=== PATIENT | female | born 1960 | race Caucasian/White ===

== ENCOUNTER → 2018-09-30 | Outpatient (CLI) | payer MEDICARE, OTHER ==
[2018-09-30 18:03] LABS: Peanut IgE <0.10 kU/L; Walnut IgE (Food) <0.10 kU/L
[2018-10-03 14:12] LABS: Latex IgE Class CLASS 0
[2018-10-03 14:13] LABS: Avocado Class CLASS 0; Banana IgE Class CLASS 0; Cow's Milk IgE Class CLASS 0; Egg White IgE <0.35 kU/L (<0.35); Hazelnut IgE <0.35 kU/L (<0.35); Hazelnut IgE Class CLASS 0; Kiwi IgE <0.35 kU/L (<0.35); Kiwi IgE Class CLASS 0; Peanut IgE <0.35 kU/L (<0.35); Potato IgE <0.35 kU/L (<0.35); Potato IgE Class CLASS 0; Soybean IgE <0.35 kU/L (<0.35)
[2018-10-03 14:14] LABS: Alt. alternata IgE Class CLASS 0; Alternaria alternata IgE <0.35 kU/L (<0.35); Asperg. fumagatus IgE <0.35 kU/L (<0.35); Asperg. fumagatus IgE Class CLASS 0; Aureo. pullulans IgE <0.35 kU/L (<0.35); Aureo. pullulans IgE Class CLASS 0; Birch(Com.Silvr) IgE <0.35 kU/L (<0.35); Birch(Com.Silvr) IgE Class CLASS 0; Candida albicans IgE Class CLASS 0; Cat Epith & Dander IgE <0.35 kU/L (<0.35); Cat Epith & Dander IgE Class CLASS 0; Clad herbarum IgE <0.35 kU/L (<0.35); Clad herbarum IgE Class CLASS 0; Cockroach IgE <0.35 kU/L (<0.35); Com. Pigweed IgE <0.35 kU/L (<0.35); Com. Pigweed IgE Class CLASS 0; Cottonwood IgE <0.35 kU/L (<0.35); Dermato. Pteronyssinus Class CLASS 0; Dermato. Pteronyssinus IgE <0.35 kU/L (<0.35); Dermato. farinae IgE <0.35 kU/L (<0.35); Dermato. farinae IgE Class CLASS 0; Dog Dander IgE <0.35 kU/L (<0.35); English Plantain IgE Class CLASS 0; Epicoccum purpurascens Class CLASS 0; Epicoccum purpurascens IgE <0.35 kU/L (<0.35); Johnson Grass IgE Class CLASS 0; Lamb's Quarter IgE <0.35 kU/L (<0.35); Lamb's Quarter IgE Class CLASS 0; Maple (Box Elder) IgE <0.35 kU/L (<0.35); Maple (Box Elder) IgE Class CLASS 0; Mucor racemosus IgE <0.35 kU/L (<0.35); Mucor racemosus IgE Class CLASS 0; Oak IgE <0.35 kU/L (<0.35); Rhizopus nigricans IgE <0.35 kU/L (<0.35); Rhizopus nigricans IgE Class CLASS 0; S.rostrata/Helminth Class CLASS 0; S.rostrata/Helminth IgE <0.35 kU/L (<0.35); Sycamore(Mpl.Lf) IgE <0.35 kU/L (<0.35); Sycamore(Mpl.Lf) IgE Class CLASS 0; Timothy Grass IgE <0.35 kU/L (<0.35); Timothy Grass IgE Class CLASS 0; Walnut Tree IgE <0.35 kU/L (<0.35); Walnut Tree IgE Class CLASS 0; White Ash IgE Class CLASS 0
[2018-10-04 12:02] LABS: Corn IgG 22.6 mcg/mL (< 2.0); Cow's Milk IgG 29.6 mcg/mL (< 2.0); Peanut IgG 3.8 mcg/mL (< 2.0); Soybean IgG 3.4 mcg/mL (< 2.0); Wheat IgG 10.6 mcg/mL (< 2.0)
== END | disposition home or self-care (01) ==
LOC: LABWHC1 11:43
PROVIDERS: ATTEND Otolaryngology
DX: J30.89 Other allergic rhinitis (principal); T78.2XXA Anaphylactic shock, unspecified, initial encounter
CPT/HCPCS: 36415; 86001; 86003

== ENCOUNTER → 2019-02-13 | Outpatient (CLI) | payer MEDICARE, OTHER ==
--- NOTE | 2019-02-13 09:15 | MR ---
EXAMINATION TYPE: MR brain and iac wo/w con DATE OF EXAM: 02/13/2019 COMPARISON: NONE HISTORY: pain in ear, jaw and neck, some loss of taste, left sided hearing loss TECHNIQUE: Multiplanar, multisequence images of the brain and brainstem including internal auditory canals are a ll performed without and with IV contrast, utilizing 9 mL intravenous Gadavist . FINDINGS: Diffusion weighted images demonstrate no evidence of a recent infarct or other diffusion ab normality. There is no worrisome extra-axial fluid collection. There is mild ventricular and sulcal prominence slightly more prominent over the bilateral frontal lobes. Scattered foci of T2 hyperintens ity are seen throughout the white matter bilaterally. Approximately 5-10 small scattered lesions are seen. Lesions are nonspecific in appearance and distribution but most likely on basis of product of c hronic small vessel ischemic change in patient of this age. Midline structures demonstrate normal morphology. The craniocervical junction appears within normal limits. Post contrast images demonstrate no abnormal enhancement. The dural venous sinuses appear pa tent. The visualized sinuses are clear and the globes are intact. No suspicious opacification mastoid air cells is present bilaterally. Vestibulocochlear complexes are symmetric without within normal limits. There is no suspicious enhancing cerebellopontine angle mass identified bilaterally. IMPRESSION: 1. No suspicious abnormalities identified to account for patient's symptoms of left-sided hearing los s and left ear pain. 2. Mild diffuse cerebral atrophy most prominent over bilateral frontal lobes with mild chronic small vessel ischemic change. No suspicious enhancement is present.
== END | disposition home or self-care (01) ==
LOC: RADMRIMAIN 07:08
PROVIDERS: ATTEND Otolaryngology
DX: G31.9 Degenerative disease of nervous system, unspecified (principal); I67.82 Cerebral ischemia; H91.92 Unspecified hearing loss, left ear; H93.3X2 Disorders of left acoustic nerve; R43.0 Anosmia
CPT/HCPCS: 70553; A9585

== ENCOUNTER → 2019-02-21 | Outpatient (CLI) | payer MEDICARE, OTHER ==
--- NOTE | 2019-02-21 09:05 | CT ---
EXAMINATION TYPE: CT soft tissue neck w con DATE OF EXAM: 02/21/2019 COMPARISON: None HISTORY: 59-year-old female loss of smell and taste, dry throat, Lt ear pain, neck pain TECHNIQUE: Contiguous axial scanning of the soft tissues of the neck performed with IV Contrast, mansi ent injected with 100 mL of Isovue 300. Coronal/sagittal reconstructions performed. CT DLP: 517.1 mGycm Automated exposure control for dose reduction was used. FINDINGS: Visualized intracranial structures, orbits and globes, paranasal sinuses, and mastoid air cells appea r clear. Nasopharynx appears clear. Bilateral lingual tonsillar hypertrophy. Oropharynx otherwise clear. Epiglottis and prevertebral soft tissues within normal limits. The glottic and subglottic structures as well as the tracheal column are clear. Post traumatic rib deformities of the anterolateral right upper chest wall. Tiny 4 mm hypodense nodule right lobe of the thyroid gland. Submandibular glands and parotid glands a re satisfactory. Prominent but not enlarged 9 mm right upper cervical lymph node and 1 cm on the left. No cervical lym phadenopathy by CT size criteria. Moderate disc/degenerative change mid to lower cervical spine with reversal of the normal cervical lo rdosis. IMPRESSION: 1. A PROMINENT UPPER CERVICAL LYMPH NODE ON EITHER SIDE MEASURES UP TO 1 CM. NO CERVICAL LYMPHADENOPA THY BY CT SIZE CRITERIA. 2. BILATERAL LINGUAL TONSILLAR HYPERTROPHY. OTHERWISE, NO DISCRETE MUCOSAL SPACE LESION.
== END | disposition home or self-care (01) ==
LOC: RADCTMAIN 06:35
PROVIDERS: ATTEND Otolaryngology
DX: J35.1 Hypertrophy of tonsils (principal); R22.9 Localized swelling, mass and lump, unspecified; Z88.1 Allergy status to other antibiotic agents; Z88.5 Allergy status to narcotic agent
CPT/HCPCS: 70491

== ENCOUNTER → 2019-11-21 | Outpatient (CLI) | payer MEDICARE, OTHER ==
--- NOTE | 2019-11-21 12:51 | FL ---
EXAMINATION TYPE: FL barium swallow w video DATE OF EXAM: 11/21/2019 CLINICAL HISTORY: 59-year-old female R13.10, Dysphagia. Coughing and choking with food. TECHNIQUE: Deglutition study is performed utilizing thin liquid barium, honey and nectar thick liqui d barium, barium thick applesauce, and barium coated cracker. Total images: None. Real-time fluoroscopy support was provided to speech pathology. Fluoroscopy time: 1 minute 39 seconds. COMPARISON: None. FINDINGS: There is anterior spondylosis at C6-C7 resulting in impression onto the posterior wall of the cervica l esophagus without obstruction. The patient points to this level as being symptomatic. Lingual tonsi llar hypertrophy is noted. The oral and pharyngeal phases show satisfactory initiation and propagatio n with all modalities tested. Normal mastication is seen with solid modalities tested. There is no evidence of penetration or aspiration with any modality tested. No significant pharyngeal residue wa s appreciated. IMPRESSION: 1. No penetration or aspiration. 2. Anterior cervical spondylosis at C6-C7 impressing on to the posterior wall of the cervical esophag us. The patient points to this level as being symptomatic. This does not contribute to an obstruction . 3. Lingual tonsillar hypertrophy noted. Please refer to speech therapist notes for further details if necessary.
== END | disposition home or self-care (01) ==
LOC: RADFLMAIN 10:38
PROVIDERS: ATTEND Otolaryngology
DX: J35.1 Hypertrophy of tonsils (principal)
CPT/HCPCS: 74230

== ENCOUNTER → 2019-11-24 | Outpatient (CLI) | payer MEDICARE, OTHER ==
--- NOTE | 2019-11-24 12:41 | FL ---
EXAMINATION: Cervical and Thoracic Esophagram DATE OF EXAM: 11/24/2019 CLINICAL INDICATION: 59-year-old female R1 3.10, dysphagia. Patient with coughing and choking episode s. COMPARISON: Correlation modified barium swallow 11/21/[address] neck 02/21/2019 Total Fluoroscopy Time: 1 minute 53 seconds. Total images: 34 FINDINGS: The swallowing mechanism is normal. Redemonstrated lingual tonsillar hypertrophy. There is also anter ior endplate spondylosis C6/C7 impressing on the posterior wall of the hypopharynx but without obstru ction. The thoracic portion has a normal course and caliber. The mucosa is normal and no persistent filling defect is encountered. There is a small to moderate-sized hiatal hernia. Gastroesophageal reflux could not be elicited with Valsalva or positional maneuvers. There are blunted secondary stripping waves with prolonged pooling of contrast in the esophagus when the patient is prone or supine IMPRESSION: 1. Redemonstrated palatine tonsillar hypertrophy as seen on the modified barium swallow study of 2019. Additional anterior endplate spondylosis at C6-C7 causing mild impingement along the posterior wall of the and upper cervical esophagus is also redemonstrated. No obstruction. 2. Small to moderate size hiatal hernia. Gastroesophageal reflux could not be elicited during the cou rse of the exam. 3. Mild esophageal dysmotility.
== END | disposition home or self-care (01) ==
LOC: RADUSWWP 09:45
PROVIDERS: ATTEND Otolaryngology
DX: K44.9 Diaphragmatic hernia without obstruction or gangrene (principal); K21.9 Gastro-esophageal reflux disease without esophagitis; K22.4 Dyskinesia of esophagus
CPT/HCPCS: 74220

== ENCOUNTER 2020-02-08 09:49 | Day surgery (SDC) | payer MEDICARE, OTHER ==
[2020-02-06 12:16] VITALS: BMI 34.5
[~2020-02-08 09:49] MED LIST: DEXAMETHASONE SOD PHOSPHATE 4 MG/ML 1 ML VIAL IV ONE; FAMOTIDINE 20 MG/2 ML VIAL IV ONE; HYDROmorphone 0.5 MG/0.5 ML SYRINGE IVP PRN; LACTATED RINGERS 1,000 ML IV SCH; LIDOCAINE 1% (10MG/ML) FOR IV START INTRADERMA PRN; ONDANSETRON 4 MG/2 ML VIAL IVP ONE
[2020-02-08] MEDS ORDERED: MIDAZOLAM 2 MG/2 ML VIAL IVP ONE (11:51)
[2020-02-08 11:58] VITALS: RESP 16
[2020-02-08] MEDS ORDERED: fentaNYL (PF) 50 MCG/ML 2 ML AMP ONE (12:16)
[2020-02-08] MEDS ORDERED: MIDAZOLAM 2 MG/2 ML VIAL ONE (12:16)
[2020-02-08] MEDS ORDERED: PROPOFOL 10 MG/ML 20 ML VIAL IV ONE (12:16)
[2020-02-08] MEDS ORDERED: DEXAMETHASONE SOD PHOSPHATE 10 MG/ML 1 ML VIAL ONE (12:16)
[2020-02-08] MEDS ORDERED: LIDOCAINE 1% INJ 10MG/ML (20 ML MDV) ONE (12:16)
[2020-02-08] MEDS ORDERED: SUCCINYLCHOLINE CHLORIDE VIAL 200 MG/10 ML VIAL IV ONE (12:16)
[2020-02-08] MEDS ORDERED: LIDOCAINE 1%-EPI 1:100,000 20 ML VIAL SQ ONE (12:46)
[2020-02-08] MEDS ORDERED: BUPIVACAINE (PF) 0.25% 30 ML VIAL SQ ONE (12:46)
--- NOTE | 2020-02-08 13:19 | P.OP ---
Date of Procedure: 02/08/20 Preoperative Diagnosis: Lingual tonsil hypertrophy Globus pharyngeus\dysphasia Postoperative Diagnosis: Same Procedure(s) Performed: Lingual tonsillectomy Esophagoscopy Anesthesia: ILANA Surgeon: Cesar Fontana Estimated Blood Loss (ml): 5 Pathology: other (Lingual tonsil) Condition: stable Disposition: PACU Indications for Procedure: This patient presented to the office for a globus pharyngeus symptoms along with dysphagia. She feels a narrowing in her throat and a food gets stuck in her throat when she tries to swallow. I did review the results of the barium swallow demonstrating significant lingual tonsillitis along with cervical osteoarthritis. She did undergo esophagoscopy previously and was found have severe lingual tonsil hypertrophy. She also has a hiatal hernia and reflux disease. She wished to proceed forward with a lingual tonsillectomy and repeat esophagoscopy. All risks, benefits, and alternative therapies were discussed. Consent was obtained and all questions were answered. Operative Findings: Patient had significant lingual tonsil hypertrophy. Osteophytic spurs were noted in the posterior pharynx. There is evidence of some mild esophagitis Description of Procedure: This patient was taken to the operative room and placed in the supine position. A general inhalation anesthetic was administered to the patient by mask and subsequently intubated with a cuffed endotracheal tube by the department of anesthesia with a functioning IV line in place. Patient was monitored throughout the entire case by the department of anesthesia. A rigid esophagoscope was placed into the patient's mouth with a tooth guard in place with care to avoid any trauma to the lips teeth gums and tongue. The esophagoscope was placed into the right piriform sinus and the entire length of the esophagus was evaluated from the lower esophageal sphincter to the upper esophageal sphincter. There is evidence of a mild chronic esophagitis but no signs of any specific tumors or masses etc. Scope was removed and then attention was then paid to the mouth and lingual tonsil. With use of a sweetheart retractor we removed parts of the lingual tonsil with direct biopsy forceps. We sent that for pathology. We removed the rest of the lingual tonsils with use of Coblation utilizing a plasma wand for removal. Excellent removal was obtained and the patient tolerated this lingual tonsillectomy well. Follow-up will be in the office in 1 week and the patient is to contact me if any problems should arise.
[2020-02-08 13:22] VITALS: TEMP 99
[2020-02-08] MEDS ORDERED: HYDROcodone/APAP 5-325MG 1 EACH TAB ONE (14:31)
[2020-02-08 14:33] VITALS: BP 126/77; PULSE 64
[2020-02-08] MEDS ORDERED: HYDROcodone/APAP 5-325MG 1 EACH TAB PO ONE (14:33)
== END 2020-02-08 15:30 | disposition home or self-care (01) ==
LOC: OR 09:49
PROVIDERS: ATTEND Otolaryngology
DX: R13.10 Dysphagia, unspecified (principal); J35.1 Hypertrophy of tonsils; D64.9 Anemia, unspecified; J45.909 Unspecified asthma, uncomplicated; F31.9 Bipolar disorder, unspecified; L30.9 Dermatitis, unspecified; K58.9 Irritable bowel syndrome, unspecified; G47.33 Obstructive sleep apnea (adult) (pediatric); E66.9 Obesity, unspecified; Z87.891 Personal history of nicotine dependence; Z68.34 Body mass index [BMI] 34.0-34.9, adult; F20.9 Schizophrenia, unspecified; Z87.09 Personal history of other diseases of the respiratory system; Z98.890 Other specified postprocedural states; Z98.891 History of uterine scar from previous surgery; Z82.49 Family history of ischemic heart disease and other diseases of the circulatory system; Z80.0 Family history of malignant neoplasm of digestive organs; K21.00 Gastro-esophageal reflux disease with esophagitis, without bleeding; Z83.42 Family history of familial hypercholesterolemia; Z83.52 Family history of ear disorders; Z83.518 Family history of other specified eye disorder; Z88.1 Allergy status to other antibiotic agents; Z88.5 Allergy status to narcotic agent; Z88.8 Allergy status to other drugs, medicaments and biological substances; M47.812 Spondylosis without myelopathy or radiculopathy, cervical region; K44.9 Diaphragmatic hernia without obstruction or gangrene
CPT/HCPCS: 42826; 43239; 88305; J2250; J0330; J1100 ×2; J2405; J0690; J2001; J3010; J2704

== ENCOUNTER 2020-11-12 13:33 | Emergency (ER) | payer MEDICARE, OTHER ==
[2020-11-12] MEDS ORDERED: methylPREDNISolone SOD SUCCI 125 MG/2 ML VIAL IV STA (14:56)
[2020-11-12] MEDS ORDERED: MORPHINE SULFATE 2 MG/ML SYRINGE IM ONE (14:56)
[2020-11-12] MEDS ORDERED: methylPREDNISolone SOD SUCCI 125 MG/2 ML VIAL IM ONE (14:56)
--- NOTE | 2020-11-12 16:02 | XR ---
EXAMINATION TYPE: XR femur LT DATE OF EXAM: 11/12/2020 CLINICAL HISTORY: Pain TECHNIQUE: Two views of the left femur are obtained. COMPARISON: None FINDINGS: There is no acute fracture or dislocation seen in the left femur. Severe arthropathy of th e knee joint with hypertrophic spurring. IMPRESSION: There is no acute fracture or dislocation in the left femur.
--- NOTE | 2020-11-12 16:03 | XR ---
EXAMINATION TYPE: XR Hip Complete LT DATE OF EXAM: 11/12/2020 COMPARISON: NONE HISTORY: Pain TECHNIQUE: 2 views submitted FINDINGS: There is no evidence of erosive change or acute fracture. Hypertrophic change of the acetabulum can b e associated with femoral acetabular impingement. Correlate clinically. Mild concentric narrowing of the joint space compatible with mild arthropathy. IMPRESSION: 1. No evidence of acute fracture or dislocation.
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
[2020-11-12 16:54] VITALS: BP 142/73; PULSE 60; RESP 18; TEMP 98
== END 2020-11-12 16:44 | disposition home or self-care (01) ==
LOC: SUPCPDRO 13:33 → EC 13:33
DX: M54.42 Lumbago with sciatica, left side (principal); M54.16 Radiculopathy, lumbar region; M25.552 Pain in left hip; J45.909 Unspecified asthma, uncomplicated; I10 Essential (primary) hypertension; M19.90 Unspecified osteoarthritis, unspecified site; K21.9 Gastro-esophageal reflux disease without esophagitis; Z79.82 Long term (current) use of aspirin; Z79.51 Long term (current) use of inhaled steroids; Z79.899 Other long term (current) drug therapy; Z88.6 Allergy status to analgesic agent; Z87.891 Personal history of nicotine dependence; Z88.8 Allergy status to other drugs, medicaments and biological substances; Z88.1 Allergy status to other antibiotic agents
CPT/HCPCS: 73502; 73552; 99284; 96372; J2930; J2270

== ENCOUNTER 2020-11-24 16:17 | Inpatient (IN) | payer MEDICARE, MEDICAID ==
[2020-11-24] MEDS ORDERED: DIAZEPAM 5 MG/ML 2 ML INJ IM STA (17:26)
--- NOTE | 2020-11-24 17:31 | ED ---
Psych HPI - General Chief Complaint: Psychiatric Symptoms Stated Complaint: psych eval Time Seen by Provider: 11/24/20 16:41 Source: patient Mode of arrival: ambulatory - History of Present Illness Initial Comments: 60-year-old female with history of bipolar, paranoid schizophrenia presenting to the emergency department for psychiatric evaluation. She is present with her sister who is also her advocate. Patient reports she is feeling manic even though she is taking her medications. Patient reports auditory but no visual hallucinations. However, she denies any homicidal suicidal thoughts or ideations. States she also speaks to her counselor on regular basis. She also reports taking anxiolytic medications when necessary but is not feeling more anxious than usual. - Related Data Home Medications Medication Instructions Recorded Confirmed Acetaminophen [Tylenol Extra 500 mg PO TID PRN 02/06/20 02/08/20 Strength] Albuterol Nebulized [Ventolin 2.5 mg INHALATION BID 02/06/20 02/08/20 Nebulized] Albuterol Sulfate [Ventolin HFA] 1 - 2 puff INHALATION Q6H PRN 02/06/20 02/06/20 Aspirin 81 mg PO DAILY 02/06/20 02/06/20 Citalopram Hydrobromide [CeleXA] 40 mg PO HS 02/06/20 02/06/20 Fluticasone Propionate [Flovent 2 puff INHALATION DAILY 02/06/20 02/06/20 Hfa 110 mcg] Loratadine [Claritin] 5 mg PO DAILY 02/06/20 02/06/20 Methocarbamol [Robaxin-750] 750 mg PO TID 02/06/20 02/06/20 Montelukast Sodium [Singulair] 10 mg PO HS 02/06/20 02/06/20 Multivitamins, Thera [Multivitamin 1 tab PO DAILY 02/06/20 02/06/20 (formulary)] Pantoprazole Sodium [Protonix] 40 mg PO HS 02/06/20 02/06/20 Promethazine HCl [Phenergan Syrup] 20 ml PO DAILY PRN 02/06/20 02/08/20 Psyllium Husk (with Sugar) 2 tsp PO DAILY 02/06/20 02/08/20 [Metamucil Powder] amLODIPine [Norvasc] 5 mg PO HS 02/06/20 02/06/20 diazePAM [Valium] 5 mg PO BID 02/06/20 02/06/20 lamoTRIgine [LaMICtal] 100 mg PO HS 02/06/20 02/06/20 traZODone HCL [Desyrel] 100 mg PO HS 02/06/20 02/06/20 valACYclovir [Valtrex] 500 mg PO BID PRN 02/06/20 02/06/20 Previous Rx's Medication Instructions Recorded Amoxicillin 500 mg PO Q8HR #300 ml 02/08/20 HYDROcodone/APAP 5-325MG [[place] 1 - 2 tab PO Q6H PRN 3 Days #24 tab 02/08/20 5-325] predniSONE [Deltasone] 20 mg PO DIRECTED #5 tab 02/08/20 predniSONE 50 mg PO DAILY #5 tab 11/12/20 Allergies Allergy/AdvReac Type Severity Reaction Status Date / Time atenolol Allergy Anaphylaxis Verified 11/24/20 16:36 ibuprofen [From Motrin] Allergy Anaphylaxis Verified 11/24/20 16:36 lisinopril Allergy Abdominal Verified 11/24/20 16:36 Pain meloxicam [From Mobic] Allergy Anaphylaxis Verified 11/24/20 16:36 tetracycline Allergy Rash/Hives Verified 11/24/20 16:36 Review of Systems ROS Statement: Those systems with pertinent positive or pertinent negative responses have been documented in the HPI. ROS Other: All systems not noted in ROS Statement are negative. Past Medical History Past Medical History: Asthma, GERD/Reflux, Hypertension, Osteoarthritis (OA), Sleep Apnea/CPAP/BIPAP Additional Past Medical History / Comment(s): MIGRAINE HEADACHE, TMJ , C PAP , HIATAL HERNIA, History of Any Multi-Drug Resistant Organisms: None Reported Past Surgical History: Adenoidectomy, Appendectomy, Cholecystectomy, Orthopedic Surgery, Tonsillectomy Additional Past Surgical History / Comment(s): BOWEL RESECTION X2 , MYOMECTOMY X3 , BILATERAL CARPAL TUNNEL RELEASE , LEFT ARTHROSCOPIC KNEE X3 Past Anesthesia/Blood Transfusion Reactions: No Reported Reaction Past Psychological History: Anxiety, Bipolar, Depression, Panic Disorder, Schiz ophrenia Smoking Status: Former smoker Past Alcohol Use History: None Reported Past Drug Use History: None Reported General Exam Limitations: no limitations General appearance: alert, in no apparent distress Head exam: Present: atraumatic, normocephalic, normal inspection Eye exam: Present: normal appearance Pupils: Present: normal accommodation ENT exam: Present: normal exam, normal oropharynx, mucous membranes moist Neck exam: Present: normal inspection, full ROM. Absent: tenderness, lymphadenopathy Respiratory exam: Present: normal lung sounds bilaterally. Absent: respiratory distress Cardiovascular Exam: Present: regular rate, normal rhythm, normal heart sounds. Absent: systolic murmur Extremities exam: Present: normal inspection, full ROM Back exam: Present: normal inspection, full ROM Neurological exam: Present: alert, oriented X3 Psychiatric exam: Present: normal affect, normal mood Skin exam: Present: warm, dry, intact, normal color Course Vital Signs 11/24/20 16:37 Temperature 98.2 F Pulse Rate 104 H Respiratory 18 Rate Blood Pressure 174/83 O2 Sat by Pulse 95 Oximetry Medical Decision Making - Medical Decision Making 60-year-old female with history of bipolar, paranoid schizophrenia presenting to the emergency department for psychiatric evaluation. EPS to evaluate a patient and she will be admitted for further psychiatric management. Disposition Clinical Impression: Auditory hallucinations Disposition: ADMITTED IP TO THIS HOSP Condition: Fair Is patient prescribed a controlled substance at d/c from ED?: No Referrals: John Albert MD [Primary Care Provider] - 1-2 days Time of Disposition: 19:14
[2020-11-24] MEDS ORDERED: LORazepam 2 MG/ML INJ IM ONE (19:30)
[2020-11-24] MEDS ORDERED: MAGNESIUM HYDROXIDE 2,400 MG/10 ML CUP PO PRN (20:19)
[2020-11-24] MEDS ORDERED: MAG HYDROX/AL HYDROX/SIMETH 30 ML CUP PO PRN (20:19)
[2020-11-24] MEDS ORDERED: LORazepam 2 MG/ML INJ IM PRN (20:23)
[2020-11-24] MEDS ORDERED: PROMETHAZINE HCL 6.25 MG/5 ML CUP PO PRN (20:24)
[2020-11-24] MEDS ORDERED: ALBUTEROL NEBULIZED 2.5 MG/3 ML INHALATION PRN (20:24)
[2020-11-24] MEDS ORDERED: haloperidoL 5 MG TAB PO PRN (20:29)
[2020-11-24] MEDS ORDERED: HALOPERIDOL LACTATE 5 MG/ML 1 ML VIAL IM PRN (20:29)
[2020-11-24] MEDS ORDERED: ALBUTEROL NEBULIZED 2.5 MG/3 ML INHALATION SCH (21:00)
[2020-11-24] MEDS: PANTOPRAZOLE 40 MG TABLET PO SCH (21:59)
[2020-11-24] MEDS: MONTELUKAST 10 MG TAB PO SCH (21:59)
[2020-11-24] MEDS: CITALOPRAM HYDROBROMIDE 20 MG TAB PO SCH (21:59)
[2020-11-24] MEDS: amLODIPine 5 MG TAB PO SCH (21:59)
[2020-11-24] MEDS: lamoTRIgine 100 MG TAB PO SCH (21:59)
[2020-11-24] MEDS ORDERED: ALBUTEROL INHALER 60 PUFF/8 GM INHALER (MHU) INHALATION PRN (23:35)
[2020-11-25 07:08] LABS: Basophils # (A) 0.1 k/uL (0-0.2); Basophils % (A) 1 %; Eosinophils # (A) 0.1 k/uL (0-0.7); Eosinophils % (A) 2 %; HCT 43.9 % (34.0-46.0); Lymphocytes # (A) 2.3 k/uL (1.0-4.8); Lymphocytes % (A) 28 %; MCH 32.7 pg (25.0-35.0); MCHC 34.1 g/dL (31.0-37.0); MCV 95.9 fL (80.0-100.0); Mean Platelet Volume 7.2; Monocytes # (A) 0.4 k/uL (0-1.0); Monocytes % (A) 5 %; Neutrophils # (A) 4.9 k/uL (1.3-7.7); Neutrophils % (A) 61 %; Platelet Count 241 k/uL (150-450); RBC 4.58 m/uL (3.80-5.40)
[2020-11-25 07:29] LABS: ALT 38 U/L (4-34); AST 45 U/L (14-36); African American GFR (CKD) >90 (>60 ml/min/1.73 sqM); Albumin 4.3 g/dL (3.5-5.0); Alkaline Phosphatase 80 U/L (38-126); Anion Gap 9 mmol/L; Blood Urea Nitrogen 9 mg/dL (7-17); Calcium 9.6 mg/dL (8.4-10.2); Carbon Dioxide 25 mmol/L (22-30); Chloride 103 mmol/L (98-107); Glucose 100 mg/dL (74-99); Non-African American GFR(CKD) >90 (>60 ml/min/1.73 sqM); Sodium 137 mmol/L (137-145)
[2020-11-25] MEDS: PSYLLIUM HUSK 100% 6 GM PACKET PO SCH (08:55)
[2020-11-25] MEDS: MULTIVITAMINS, THERA 1 EACH TAB PO SCH (08:55)
[2020-11-25] MEDS: ALBUTEROL INHALER 60 PUFF/8 GM INHALER (MHU) INHALATION SCH ×2 (08:56→21:03)
[2020-11-25] MEDS: ACETAMINOPHEN TAB 325 MG TAB PO PRN ×2 (08:59→22:14)
[2020-11-25] MEDS ORDERED: LORATADINE 10 MG TAB PO SCH (09:00)
[2020-11-25] MEDS: FLUTICASONE 110 MCG INHALER INHALATION SCH (09:23)
[2020-11-25 11:54] LABS: Chol/HDL Ratio 3.02; Cholesterol 196 mg/dL (0-200)
--- NOTE | 2020-11-25 12:53 | P.HP ---
Psychiatric H&P - . H&P Date: 11/25/20 History & Physical: Allergies Allergy/AdvReac Type Severity Reaction Status Date / Time atenolol Allergy Anaphylaxis Verified 11/24/20 16:36 ibuprofen [From Motrin] Allergy Anaphylaxis Verified 11/24/20 16:36 lisinopril Allergy Abdominal Verified 11/24/20 16:36 Pain meloxicam [From Mobic] Allergy Anaphylaxis Verified 11/24/20 16:36 tetracycline Allergy Rash/Hives Verified 11/24/20 16:36 Vital Signs Temp 97.9 F 11/24/20 21:23 Pulse 75 11/24/20 21:23 Resp 18 11/24/20 21:23 BP 174/83 11/24/20 16:37 Pulse Ox 95 11/24/20 16:37 Intake & Output 11/24/20 11/25/20 11/25/20 18:59 06:59 18:59 Weight 81.647 kg 81.647 kg Laboratory Last Values WBC 8.0 k/uL (3.8-10.6) 11/25/20 06:19 RBC 4.58 m/uL (3.80-5.40) 11/25/20 06:19 Hgb 15.0 gm/dL (11.4-16.0) 11/25/20 06:19 Hct 43.9 % (34.0-46.0) 11/25/20 06:19 MCV 95.9 fL (80.0-100.0) 11/25/20 06:19 MCH 32.7 pg (25.0-35.0) 11/25/20 06:19 MCHC 34.1 g/dL (31.0-37.0) 11/25/20 06:19 RDW 13.0 % (11.5-15.5) 11/25/20 06:19 Plt Count 241 k/uL (150-450) 11/25/20 06:19 MPV 7.2 11/25/20 06:19 Neutrophils % 61 % 11/25/20 06:19 Lymphocytes % 28 % 11/25/20 06:19 Monocytes % 5 % 11/25/20 06:19 Eosinophils % 2 % 11/25/20 06:19 Basophils % 1 % 11/25/20 06:19 Neutrophils # 4.9 k/uL (1.3-7.7) 11/25/20 06:19 Lymphocytes # 2.3 k/uL (1.0-4.8) 11/25/20 06:19 Monocytes # 0.4 k/uL (0-1.0) 11/25/20 06:19 Eosinophils # 0.1 k/uL (0-0.7) 11/25/20 06:19 Basophils # 0.1 k/uL (0-0.2) 11/25/20 06:19 Sodium 137 mmol/L (137-145) 11/25/20 06:19 Potassium 4.0 mmol/L (3.5-5.1) 11/25/20 06:19 Chloride 103 mmol/L (98-107) 11/25/20 06:19 Carbon Dioxide 25 mmol/L (22-30) 11/25/20 06:19 Anion Gap 9 mmol/L 11/25/20 06:19 BUN 9 mg/dL (7-17) 11/25/20 06:19 Creatinine 0.52 mg/dL (0.52-1.04) 11/25/20 06:19 Est GFR (CKD-EPI)AfAm >90 (>60 ml/min/1.73 sqM) 11/25/20 06:19 Est GFR (CKD-EPI)NonAf >90 (>60 ml/min/1.73 sqM) 11/25/20 06:19 Glucose 100 mg/dL (74-99) H 11/25/20 06:19 Calcium 9.6 mg/dL (8.4-10.2) 11/25/20 06:19 Total Bilirubin 1.0 mg/dL (0.2-1.3) 11/25/20 06:19 AST 45 U/L (14-36) H 11/25/20 06:19 ALT 38 U/L (4-34) H 11/25/20 06:19 Alkaline Phosphatase 80 U/L (38-126) 11/25/20 06:19 Total Protein 7.0 g/dL (6.3-8.2) 11/25/20 06:19 Albumin 4.3 g/dL (3.5-5.0) 11/25/20 06:19 TSH 1.190 mIU/L (0.465-4.680) 11/25/20 06:19 Coronavirus (PCR) Not Detected (Not Detectd) 11/24/20 19:24 11/25/20 11:27 IDENTIFYING DATA: Patient is a 60-year-old female with history of bipolar disorder, currently lives with her parents, lives in a house, is unemployed, no kids. HPI: Patient presented to the hospital yesterday for psychiatric evaluation with her sister. Patient was complaining of having manic symptoms and auditory hallucinations and also anxiety in the ER. Patient did admit to taking her medications. EPS note claims that patient was fairly demanding making sexually graphic remarks and giving information of her dating life. She also was making racist comments and was sexually preoccupied. She was also endorsing paranoia and claiming that the mafia was after her. She had a flight of ideas and was grandiose according to the EPS report. Patient was seen today with a female superintendent communications. She claims that she has been diagnosed with "bipolar and schizophrenia" and states that she was feeling manic. She describes being diagnosed a long time ago and having been on many different psychiatric medications. She was fairly tangential rambles and had loose associations. She also was displaying a flight of ideas. She spoke about using "drugs in the city" and claims that her mother picked her up and "moved me to the thumb". She spoke about "[place]" and also talked about the mafia and [place] cartels that are after her. She also spoke about security cameras in her apartment. She states that she is hearing voices and claims that it is a "third democrat narrative". She states that she first sleep has been poor. She claimed that her mood is "better". She states that she is taking her medications. She did endorse some paranoia about the drug cartel being after her. She did have racing thoughts and was disorganized at times. Patient denies any current suicidal or homicidal ideations intent or plan. At this time patient denies any visual hallucinations. Patient admits to using no recreational drugs or cigarettes. PAST PSYCHIATRIC HISTORY: Patient states that she has a hx of schizophrenia and bipolar disorder. She states that she has been on several different antipsychotics and medications in the past. Currently on Lamictal and Celexa. She claims that she has been hospitalized several times in the past and her last psychiatric hospitalization was on the mental health unit 15 years ago. She claims that she sees a psychiatrist through telehealth. She states that she also has a therapist that she meets with weekly. [Patient denies any history of suicide attempts in the past.] Past Medical History: Asthma, GERD/Reflux, Hypertension, Osteoarthritis (OA), Sleep Apnea/CPAP/BIPAP Additional Past Medical History / Comment(s): MIGRAINE HEADACHE, TMJ , C PAP , HIATAL HERNIA, ALLERGIES: as per EMR CHEMICAL DEPENDENCY HISTORY: as per HPI FAMILY PSYCHIATRIC/SUBSTANCE USE HISTORY: She claims that her father currently has dementia and also has a history of bipolar disorder. SOCIAL HISTORY: Patient was born and raised in [facility]. She states that currently she lives in "the [facility]". She states that she did some college. 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 She has no kids and is single. She currently lives with her parents in a house. She states that she does have a DUI charge 17 years ago. MENTAL STATUS EXAM: General Appearance: Patient appears to be overweight, stated age is alert, difficult to redirect. Patient appears to have [poor] hygiene and grooming. Behavior: Patient is seated without any agitated behavior. Disorganized at times Speech: Patient's speech is pressured and disorganized. Tangential. Mood/Affect: Patient reports their mood is "better", affect is congruent and constricted. Suicidality/Homicidality: Patient denies having any homicidal ideation intent or plan. [Denies any suicidal ideations intent or plan] Perceptions: Patient denies any visual hallucinations and states that she does hear auditory hallucinations of a "third democrat narrative". Though content/process: Patient rambles, is tangential. Loose associations. Flight of ideas. Racing thoughts. Memory and concentration: AOX3, grossly intact for the purposes of this session. Can spell "WORLD" backwards Judgment and insight: [poor] STRENGTHS/WEAKNESSES: strength is that patient is [resilient]. Weakness is that patient [has poor judgment and is impulsive] INTELLECT: [average] IMPRESSIONS: Schizoaffective disorder, bipolar type PLAN: -Patient is admitted under [voluntary] status to MHU for stabilization of psychiatric symptoms and safety. Patient has signed [adult voluntary form and] [medication consent] and is placed in patient's chart. -Medications : Will start patient on Seroquel 50 mg daily at bedtime for mood stabilization/psychosis. Continue with Lamictal 100 mg daily at bedtime for mood stabilization. Celexa 40 mg daily at bedtime for mood/anxiety. -Ativan [and Haldol] PRN for agitation/aggression -Patient was informed of the risks, benefits and side effects of the medication and patient verbally consented to taking the medications. Patient signed med consent form and was placed in chart. -Internal Medicine consult to perform medical evaluation and physical. -NRT - not needed as patient does not smoke -SW on board for discharge planning. Encourage patient to participate in groups to work on coping skills. 11/25/20 12:43 11/25/20 12:52
[2020-11-25 15:27] LABS: Urine Alcohol Negative (Negative); Urine Barbiturate Negative (Negative); Urine Cocaine Negative (Negative); Urine Methadone Negative (Negative); Urine Opiates Negative (Negative); Urine Phencyclidine Negative (Negative)
--- NOTE | 2020-11-25 17:22 | P.MDCNMH ---
History of Present Illness H&P Date: 11/25/20 Chief Complaint: Medical management Patient is a 60-year-old female with a known history of TMJ with frequent lidocaine injections at in [facility], hypertension, obstructive sleep apnea on CPAP at home, IBS, GERD and migraine headaches, bipolar disorder and paranoid schizophrenia presents to ER with complaints of manic ideation and psychiatric evaluation. Patient presents with her sister who is her advocate. Patient says that he has been manic recently and has been taking her medications regularly. Also having auditory hallucinations. She has been walking to her counselor more frequently. Patient states that she has been stressful recently and has been taking care of her father and hospital. She also states that her mother developed chest pain recently. Denied any complaints of fever or chills. No cough or sputum production. No nausea vomiting or abdominal pain or diarrhea. On admission blood pressure 174/83 pulse 104 this patient 18 and pulse ox 90% on room air. Laboratory data showed WBC 8.0 hemoglobin 15.0 and platelets 241 Sodium 137 potassium 4.0 chloride 103 BUN 9 and creatinine 0.5 to, AST 45 ALT 35 triglycerides 180 alk phos 80 UDS is positive for benzodiazepines. Chronic increase have not directed. TSH within normal limits 1.190 Review of Systems Constitutional: Patient denies any fever or chills . No generalized weakness or weight loss. Abdomen: Patient denied nausea vomiting and diarrhea and abdominal pain. Cardiovascular: Patient denies any chest pain or short of breath no pa lpitations. Respiratory: patient denied any cough is from production. No shortness of breath Neurologic: Patient denied any numbness or tingling headache. Musculoskeletal: Patient denies any complaints of joint swelling or deformity. Skin: Negative Psychiatric: As per HPI Endocrine: No heat or cold intolerance. No recent weight gain. Genitourinary: No dysuria or hematuria. All other 14 point ROS negative except the above Past Medical History Past Medical History: Asthma, GERD/Reflux, Hypertension, Osteoarthritis (OA), Sleep Apnea/CPAP/BIPAP Additional Past Medical History / Comment(s): MIGRAINE HEADACHE, TMJ , C PAP , HIATAL HERNIA, History of Any Multi-Drug Resistant Organisms: None Reported Past Surgical History: Adenoidectomy, Appendectomy, Cholecystectomy, Orthopedic Surgery, Tonsillectomy Additional Past Surgical History / Comment(s): BOWEL RESECTION X2 , MYOMECTOMY X3 , BILATERAL CARPAL TUNNEL RELEASE , LEFT ARTHROSCOPIC KNEE X3 Past Anesthesia/Blood Transfusion Reactions: No Reported Reaction Smoking Status: Former smoker Medications and Allergies Home Medications Medication Instructions Recorded Confirmed Type Acetaminophen [Tylenol Extra 500 mg PO TID PRN 02/06/20 11/24/20 History Strength] Albuterol Nebulized [Ventolin 2.5 mg INHALATION BID 02/06/20 11/24/20 History Nebulized] Albuterol Sulfate [Ventolin HFA] 1 - 2 puff INHALATION Q6H PRN 02/06/20 11/24/20 History Aspirin 81 mg PO DAILY 02/06/20 11/24/20 History Citalopram Hydrobromide [CeleXA] 40 mg PO HS 02/06/20 11/24/20 History Fluticasone Propionate [Flovent 2 puff INHALATION DAILY 02/06/20 11/24/20 History Hfa 110 mcg] Loratadine [Claritin] 5 mg PO DAILY 02/06/20 11/24/20 History Methocarbamol [Robaxin-750] 750 mg PO TID 02/06/20 11/24/20 History Montelukast Sodium [Singulair] 10 mg PO HS 02/06/20 11/24/20 History Multivitamins, Thera [Multivitamin 1 tab PO DAILY 02/06/20 11/24/20 History (formulary)] Pantoprazole Sodium [Protonix] 40 mg PO HS 02/06/20 11/24/20 History Promethazine HCl [Phenergan Syrup] 20 ml PO DAILY PRN 02/06/20 11/24/20 History Psyllium Husk (with Sugar) 2 tsp PO DAILY 02/06/20 11/24/20 History [Metamucil Powder] amLODIPine [Norvasc] 5 mg PO HS 02/06/20 11/24/20 History diazePAM [Valium] 5 mg PO BID 02/06/20 11/24/20 History lamoTRIgine [LaMICtal] 100 mg PO HS 02/06/20 11/24/20 History traZODone HCL [Desyrel] 100 mg PO HS 02/06/20 11/24/20 History valACYclovir [Valtrex] 500 mg PO BID PRN 02/06/20 11/24/20 History Amoxicillin 500 mg PO Q8HR #300 ml 02/08/20 11/24/20 Rx HYDROcodone/APAP 5-325MG [[place] 1 - 2 tab PO Q6H PRN 3 Days #24 tab 02/08/20 11/24/20 Rx 5-325] predniSONE [Deltasone] 20 mg PO DIRECTED #5 tab 02/08/20 11/24/20 Rx predniSONE 50 mg PO DAILY #5 tab 11/12/20 11/24/20 Rx Allergies Allergy/AdvReac Type Severity Reaction Status Date / Time atenolol Allergy Anaphylaxis Verified 11/24/20 16:36 ibuprofen [From Motrin] Allergy Anaphylaxis Verified 11/24/20 16:36 lisinopril Allergy Abdominal Verified 11/24/20 16:36 Pain meloxicam [From Mobic] Allergy Anaphylaxis Verified 11/24/20 16:36 tetracycline Allergy Rash/Hives Verified 11/24/20 16:36 Physical Exam Vitals: Vital Signs Temp Pulse Resp 11/24/20 21:23 97.9 F 75 18 PHYSICAL EXAMINATION: Patient is lying in the bed comfortably, no acute distress, awake alert and oriented.. HEENT: Normocephalic. Neck is supple. Pupils reactive. Nostrils clear. Oral cavity is moist. Neck reveals no JVD, carotid bruits, or thyromegaly. CHEST EXAMINATION: Trachea is central. Symmetrical expansion. Lung nuñez clear to auscultation and percussion. CARDIAC: Normal S1, S2 with no gallops. No murmurs ABDOMEN: Soft. Bowel sounds normal. No organomegaly. No abdominal bruits. Extremities: reveal no edema. No clubbing or cyanosis Neurologically awake, alert, oriented x3 with well-coordinated movements. No focal deficits noted Skin: No rash or skin lesions. Psychiatric: Coperative. Nonsuicidal anxious, paranoid. Musculoskeletal: No joint swelling or deformity. Normal range of motion. Cranial Nerve Examination - Cranial Nerves Cranial Nerve I- Olfactory: Intact Cranial Nerve II- Optic: Intact Cranial Nerve III- Oculomotor: Intact Cranial Nerve IV- Trochlear: Intact Cranial Nerve V- Trigeminal: Intact Cranial Nerve - Abducens: Intact Cranial Nerve VII- Facial: Intact Cranial Nerve VIII- Auditory: Intact Cranial Nerve IX- Glossopharyngeal: Intact Cranial Nerve X- Vagus: Intact Cranial Nerve XI- Accessory: Intact Cranial Nerve XII- Hypoglossal: Intact Results CBC & Chem 7: 11/25/20 06:19 11/25/20 06:19 Labs: Abnormal Lab Results - Last 24 Hours (Table) 11/24/20 11/25/20 Range/Units Unknown 06:19 Glucose 100 H (74-99) mg/dL AST 45 H (14-36) U/L ALT 38 H (4-34) U/L Triglycerides 180.0 H (0.0-149.0) mg/dL HDL Cholesterol 65.0 H (40.0-60.0) mg/dL U Benzodiazepines Scrn Positive A (Negative) ng/mL Assessment and Plan Assessment: Schizoaffective disorder with paranoid ideation Auditory hallucinations Mild transaminitis Asthma Previous history of smoking Hypertension. Uncontrolled Obstructive sleep apnea on CPAP at home Osteoarthritis Migraine headaches TMJ on frequented lidocaine injections at [facility] Anxiety/depression/bipolar/panic disorder and schizophrenia DVT prophylaxis with anticoagulation plan: Patient will be started back on current home blood pressure medications, Norvasc 5 mg at bedtime. Continue with current psychiatric management and plan. Patient will be started back on breathing treatments and CPAP as needed in the night. Continue with home medications and will follow up closely. Further recommendations based on the clinical course. Thank you for your consult.
[2020-11-25] MEDS: CITALOPRAM HYDROBROMIDE 20 MG TAB PO SCH (20:57)
[2020-11-25] MEDS: lamoTRIgine 100 MG TAB PO SCH (20:57)
[2020-11-25] MEDS: amLODIPine 5 MG TAB PO SCH (20:57)
[2020-11-25] MEDS: ASPIRIN 81 MG PO SCH (20:57)
[2020-11-25] MEDS: PANTOPRAZOLE 40 MG TABLET PO SCH (20:58)
[2020-11-25] MEDS: MONTELUKAST 10 MG TAB PO SCH (20:58)
[2020-11-25] MEDS: QUEtiapine 50 MG TAB PO SCH (20:58)
[2020-11-25] MEDS: LORazepam 1 MG TAB PO PRN (21:35)
[2020-11-26] MEDS: ACETAMINOPHEN TAB 325 MG TAB PO PRN ×4 (05:07→19:41)
[2020-11-26 07:50] LABS: ALT 36 U/L (4-34); AST 38 U/L (14-36); African American GFR (CKD) >90 (>60 ml/min/1.73 sqM); Albumin 4.2 g/dL (3.5-5.0); Alkaline Phosphatase 69 U/L (38-126); Anion Gap 10 mmol/L; Blood Urea Nitrogen 11 mg/dL (7-17); Calcium 9.7 mg/dL (8.4-10.2); Carbon Dioxide 23 mmol/L (22-30); Chloride 105 mmol/L (98-107); Glucose 107 mg/dL (74-99); Non-African American GFR(CKD) >90 (>60 ml/min/1.73 sqM); Sodium 138 mmol/L (137-145); Total Bilirubin 0.6 mg/dL (0.2-1.3); Total Protein 7.1 g/dL (6.3-8.2)
[2020-11-26] MEDS: FLUTICASONE 110 MCG INHALER INHALATION SCH (08:15)
[2020-11-26] MEDS: MULTIVITAMINS, THERA 1 EACH TAB PO SCH (08:16)
[2020-11-26] MEDS: CETIRIZINE 10 MG TABLET PO SCH (08:16)
[2020-11-26] MEDS: ALBUTEROL INHALER 60 PUFF/8 GM INHALER (MHU) INHALATION SCH ×2 (08:17→21:22)
[2020-11-26] MEDS: PSYLLIUM HUSK 100% 6 GM PACKET PO SCH ×2 (08:20→09:57)
--- NOTE | 2020-11-26 10:27 | P.PN ---
Progress Note - Text Progress Note Date: 11/26/20 Interval History: Patient was seen wandering the hallways and was directable and agreeable to jennifer caldwell with telegraphic typewriter operator in the office. Patient had just taken her morning medications. She appears to be more directable and calmer during conversation. She is also less tangential and showing improvement in her flight of ideas. She states that she slept fairly initially at nighttime with her CPAP and her sitter at her side however states that she woke up in the middle of the night and required an Ati van to go back to bed. He states that today she is feeling mildly better in terms of her mood and anxiety. She was less focused on her delusions and spoke more about her medications and also her follow-up. She was concerned about being discharged too early from the hospital. She asked about her discharge planning. She states that she has been trying to go to groups and participate. She claims have a fair appetite. Her medications were discussed and different options and she claims that she wants to remain on Seroquel and telegraphic typewriter operator informed her of the risk of potential weight gain however decreased risk of potential tardive dyskinesia or other neurological signs as patient was agreeable to this and verbally understood. At this time patient denies any suicidal or homical ideations, intent or plan. Patient denies any visual hallucinations and denies any paranoia or delusions. She claims that her auditory hallucinations have been improving mildly. Patient denies any side effects from the medications and has been compliant with meds. Mental Status Exam: General Appearance: Patient appears to be overweight, stated age is alert, more directable. Patient appears to have improving mildly hygiene and grooming Behavior: Patient is seated without any agitated behavior. Calmer Speech: Patient's speech is more orgnaized today. less tangential. Mood/Affect: Patient reports their mood is "ok", affect is congruent and constricted. Suicidality/Homicidality: Patient denies having any homicidal ideation intent or plan. Denies any suicidal ideations intent or plan Perceptions: Patient denies any visual hallucinations and states that her auditory hallucinations are improving mildly Though content/process: Patient rambles, is tangential. Loose associations. Flight of ideas. Racing thoughts. Memory and concentration: AOX3, grossly intact for the purposes of this session. Judgment and insight: poor, improving mildly Assessment Schizoaffective disorder, bipolar type Plan: -Patient continues to meet criteria for inpatient psychiatric admission for symptom stabilization and safety. Patient has signed adult voluntary form and medication consent and was placed in patient's chart. -Medications: Seroquel 50 mg daily at bedtime for mood stabilization/psychosis. Continue with Lamictal 100 mg daily at bedtime for mood stabilization. Celexa 40 mg daily at bedtime for mood/anxiety. added melatonin 5 mg qhs insomnia. immodium prn for diarrhea. -When necessary Ativan and Haldol for agitation/aggression. -NRT -not needed as patient does not smoke -SW on board for discharge planning. Encouraged the patient to participate in milieu. likely discharge 04-11
[2020-11-26] MEDS: LOPERAMIDE 2 MG CAP PO PRN (10:55)
[2020-11-26] MEDS: PANTOPRAZOLE 40 MG TABLET PO SCH (15:06)
[2020-11-26] MEDS ORDERED: MELATONIN 5 MG TABLET PO SCH (21:00)
[2020-11-26] MEDS: CITALOPRAM HYDROBROMIDE 20 MG TAB PO SCH (21:22)
[2020-11-26] MEDS: MONTELUKAST 10 MG TAB PO SCH (21:22)
[2020-11-26] MEDS: lamoTRIgine 100 MG TAB PO SCH (21:23)
[2020-11-26] MEDS: amLODIPine 5 MG TAB PO SCH (21:23)
[2020-11-26] MEDS: ASPIRIN 81 MG PO SCH (21:23)
[2020-11-26] MEDS: QUEtiapine 50 MG TAB PO SCH (21:23)
[2020-11-26] MEDS: LORazepam 1 MG TAB PO PRN (21:25)
[2020-11-27] MEDS: ACETAMINOPHEN TAB 325 MG TAB PO PRN ×2 (06:27→13:27)
[2020-11-27] MEDS: FLUTICASONE 110 MCG INHALER INHALATION SCH (08:20)
[2020-11-27] MEDS: MULTIVITAMINS, THERA 1 EACH TAB PO SCH (08:20)
[2020-11-27] MEDS: PANTOPRAZOLE 40 MG TABLET PO SCH (08:20)
[2020-11-27] MEDS: CETIRIZINE 10 MG TABLET PO SCH ×3 (08:20→15:03)
[2020-11-27] MEDS: ALBUTEROL INHALER 60 PUFF/8 GM INHALER (MHU) INHALATION SCH ×2 (08:20→21:37)
[2020-11-27] MEDS: PSYLLIUM HUSK 100% 6 GM PACKET PO SCH (08:21)
--- NOTE | 2020-11-27 09:49 | P.PN ---
Progress Note - Text Progress Note Date: 11/27/20 Interval History: Patient was seen wandering the hallways and was directable and agreeable to sp javi with sba underwriter in the office. Patient appears to be more directable and calmer during conversation. She claims that she did not have a good night last night. She states that she beleives that her medication doses could be "too high". She also claimed that she was walking up and down the hallways last night. She is also less tangential and showing improvement in her flight of ideas today. He states that today she is feeling mildly better in terms of her mood and anxiety. She was less focused on her delusions since she came in. She states that she has been trying to go to groups and participate. She claims have a fair appetite. At this time patient denies any suicidal or homical ideations, intent or plan. Patient denies any visual hallucinations and denies any paranoia or delusions. She claims that her auditory hallucinations have been improving mildly once again. Mental Status Exam: General Appearance: Patient appears to be overweight, stated age is alert, more directable. Patient appears to have improving mildly hygiene and grooming Behavior: Patient is seated without any agitated behavior. Calmer Speech: Patient's speech is more orgnaized today. less tangential today Mood/Affect: Patient reports their mood is "a bit better", affect is congruent and constricted. Suicidality/Homicidality: Patient denies having any homicidal ideation intent or plan. Denies any suicidal ideations intent or plan Perceptions: Patient denies any visual hallucinations and states that her auditory hallucinations are improving mildly Though content/process: Patient rambles, is tangential. more organized. Rambles at times. Memory and concentration: AOX3, grossly intact for the purposes of this session. Judgment and insight: poor, improving mildly Assessment Schizoaffective disorder, bipolar type Plan: -Patient continues to meet criteria for inpatient psychiatric admission for symptom stabilization and safety. Patient has signed adult voluntary form and medication consent and was placed in patient's chart. -Medications: Seroquel 50 mg daily at bedtime for mood stabilization/psychosis. Continue with Lamictal 100 mg daily at bedtime for mood stabilization. switched Celexa 40 mg to daily dosing for mood/anxiety. continue with melatonin 5 mg qhs insomnia. immodium prn for diarrhea. Decreased ativan prn dosing -When necessary Ativan and Haldol for agitation/aggression. -NRT -not needed as patient does not smoke -SW on board for discharge planning. Encouraged the patient to participate in milieu. likely discharge 1-2 days.
[2020-11-27] MEDS: CITALOPRAM HYDROBROMIDE 20 MG TAB PO SCH (11:04)
[2020-11-27] MEDS: LORazepam 0.5 MG TAB PO PRN (13:27)
[2020-11-27] MEDS: lamoTRIgine 100 MG TAB PO SCH (21:39)
[2020-11-27] MEDS: QUEtiapine 50 MG TAB PO SCH (21:39)
[2020-11-27] MEDS: amLODIPine 5 MG TAB PO SCH (21:39)
[2020-11-27] MEDS: MELATONIN 5 MG TABLET PO SCH (21:39)
[2020-11-27] MEDS: ASPIRIN 81 MG PO SCH (21:39)
[2020-11-27] MEDS: MONTELUKAST 10 MG TAB PO SCH (21:39)
[2020-11-28] MEDS: CETIRIZINE 10 MG TABLET PO SCH (06:16)
[2020-11-28] MEDS: ACETAMINOPHEN TAB 325 MG TAB PO PRN ×2 (06:17→16:41)
[2020-11-28] MEDS: ALBUTEROL INHALER 60 PUFF/8 GM INHALER (MHU) INHALATION SCH ×2 (08:40→20:51)
[2020-11-28] MEDS: PSYLLIUM HUSK 100% 6 GM PACKET PO SCH (08:41)
[2020-11-28] MEDS: FLUTICASONE 110 MCG INHALER INHALATION SCH (08:41)
[2020-11-28] MEDS: PANTOPRAZOLE 40 MG TABLET PO SCH (08:41)
[2020-11-28] MEDS: MULTIVITAMINS, THERA 1 EACH TAB PO SCH (08:41)
[2020-11-28] MEDS: CITALOPRAM HYDROBROMIDE 20 MG TAB PO SCH (08:42)
[2020-11-28] MEDS ORDERED: PSYLLIUM HUSK 100% 6 GM PACKET PO ONE (09:00)
--- NOTE | 2020-11-28 09:05 | P.PN ---
Progress Note - Text Progress Note Date: 11/28/20 Interval History: Patient was seen wandering the hallways and was directable and agreeable to sp javi with report writer in the office. Patient appears to be more directable and calmer during conversation. She continues to be somatically preoccupied at times and talks about her clearing her throat and also her IBS and bowel movements. She requested to have some of her when necessary medications changed. She claims that she feels better on medications and feels like her thoughts are "calmer". She wants to remain on the same dose of the Seroquel despite having a 5-6 hours sleep last night. She states that she had some anxiety at nighttime. She wants to remain on 50 mg of Seroquel for tonight before trying to increase it. She is also less tangential and showing improvement in her flight of ideas today. He states that today she is feeling mildly better in terms of her mood and anxiety. She states that she has been trying to go to groups and participate however states that she is not getting much out of them. She claims have a fair appetite. At this time patient denies any suicidal or homical ideations, intent or plan. Patient denies any visual hallucinations and denies any paranoia or delusions. She claims that her auditory hallucinations have been improving mildly once again. Mental Status Exam: General Appearance: Patient appears to be overweight, stated age is alert, more directable. Patient appears to have improving mildly hygiene and grooming Behavior: Patient is seated without any agitated behavior. Calmer Speech: Patient's speech is more orgnaized today. less tangential today Mood/Affect: Patient reports their mood is "better", affect is congruent and constricted. Suicidality/Homicidality: Patient denies having any homicidal ideation intent or plan. Denies any suicidal ideations intent or plan Perceptions: Patient denies any visual hallucinations and denies any auditory hallucinations. Though content/process: Patient rambles, is tangential at times. more organized. Rambles at times. Memory and concentration: AOX3, grossly intact for the purposes of this session. Judgment and insight: improving mildly Assessment Schizoaffective disorder, bipolar type Plan: -Patient continues to meet criteria for inpatient psychiatric admission for symptom stabilization and safety. Patient has signed adult voluntary form and medication consent and was placed in patient's chart. -Medications: Seroquel 50 mg daily at bedtime for mood stabilization/psychosis. Continue with Lamictal 100 mg daily at bedtime for mood stabilization. Celexa 40 mg to daily dosing for mood/anxiety. continue with melatonin 5 mg qhs insomnia. -When necessary Ativan and Haldol for agitation/aggression. -NRT -not needed as patient does not smoke -SW on board for discharge planning. Encouraged the patient to participate in milieu. likely discharge back home tomorrow.
[2020-11-28] MEDS: LOPERAMIDE 2 MG CAP PO PRN ×2 (09:20→17:03)
[2020-11-28] MEDS: AZELASTINE 137MCG/SPRAY NASAL PRN ×2 (09:50→21:00)
[2020-11-28] MEDS: valACYclovir 500 MG TAB PO PRN (09:50)
[2020-11-28] MEDS: LORazepam 0.5 MG TAB PO PRN ×2 (11:20→18:33)
[2020-11-28] MEDS: ASPIRIN 81 MG PO SCH (20:52)
[2020-11-28] MEDS: QUEtiapine 50 MG TAB PO SCH (20:52)
[2020-11-28] MEDS: MELATONIN 5 MG TABLET PO SCH (20:52)
[2020-11-28] MEDS: amLODIPine 5 MG TAB PO SCH (20:52)
[2020-11-28] MEDS: MONTELUKAST 10 MG TAB PO SCH (20:52)
[2020-11-28] MEDS: lamoTRIgine 100 MG TAB PO SCH (20:52)
[2020-11-29 07:19] VITALS: BP 133/81; PULSE 81; RESP 14; TEMP 96.7
[2020-11-29] MEDS: MULTIVITAMINS, THERA 1 EACH TAB PO SCH (08:27)
[2020-11-29] MEDS: CITALOPRAM HYDROBROMIDE 20 MG TAB PO SCH (08:27)
[2020-11-29] MEDS: PANTOPRAZOLE 40 MG TABLET PO SCH (08:27)
[2020-11-29] MEDS: AZELASTINE 137MCG/SPRAY NASAL PRN (08:28)
[2020-11-29] MEDS: CETIRIZINE 10 MG TABLET PO SCH (08:29)
[2020-11-29] MEDS: FLUTICASONE 110 MCG INHALER INHALATION SCH (08:30)
[2020-11-29] MEDS: ACETAMINOPHEN TAB 325 MG TAB PO PRN ×2 (08:31→11:56)
[2020-11-29] MEDS: ALBUTEROL INHALER 60 PUFF/8 GM INHALER (MHU) INHALATION SCH (08:36)
[2020-11-29] MEDS ORDERED: PSYLLIUM HUSK 100% 6 GM PACKET PO SCH (09:00)
--- NOTE | 2020-11-29 09:55 | P.DS ---
Providers Date of admission: 11/24/20 20:15 Expected date of discharge: 11/29/20 Attending physician: Ronnie Diaz MD Consults: 11/24/20 20:19 Consult Physician Routine Consulting Provider: Ajit Briscoe Consult Reason/Comments: medical management Do you want consulting provider notified?: Already Contacted Primary care physician: John Albert - Discharge Diagnosis(es) (1) Schizoaffective disorder, bipolar type Current Visit: Yes Status: Acute Priority: High Hospital Course: Admission HPI: Admission note was completed by real estate underwriter " Patient is a 60-year-old female with history of bipolar disorder, currently lives with her parents, lives in a house, is unemployed, no kids. Patient presented to the hospital yesterday for psychiatric evaluation with her sister. Patient was complaining of having manic symptoms and auditory hallucinations and also anxiety in the ER. Patient did admit to taking her medications. EPS note claims that patient was fairly demanding making sexually graphic remarks and giving information of her dating life. She also was making racist comments and was sexually preoccupied. She was also endorsing paranoia and claiming that the mafia was after her. She had a flight of ideas and was grandiose according to the EPS report. Patient was seen today with a female floor inspector. She claims that she has been diagnosed with "bipolar and schizophrenia" and states that she was feeling manic. She describes being diagnosed a long time ago and having been on many different psychiatric medications. She was fairly tangential rambles and had loose associations. She also was displaying a flight of ideas. She spoke about using "drugs in the city" and claims that her mother picked her up and "moved me to the thumb". She spoke about "[place]" and also talked about the mafia and [place] cartels that are after her. She also spoke about security cameras in her apartment. She states that she is hearing voices and claims that it is a "third green party narrative". She states that she first sleep has been poor. She claimed that her mood is "better". She states that she is taking her medications. She did endorse some paranoia about the drug cartel being after her. She did have racing thoughts and was disorganized at times. Patient denies any current suicidal or homicidal ideations intent or plan. At this time patient denies any visual hallucinations. Patient admits to using no recreational drugs or cigarettes." Hospital course: Upon admission to the unit patient was initially bizarre and psychotic. Patient was however directable and agreeable to commence treatment and signed adult voluntary form. Patient got along well with other patients on the unit and followed unit protocol. Patient was compliant with the medications and denied any side effects throughout hospital course. Patient was started on Seroquel an d titrated up to a dose of 50 mg daily at bedtime for mood stabilization/psychosis. Patient was also restarted back on her Lamictal 100 mg daily at bedtime for mood stabilization and also restarted back on her Celexa 40 mg daily for mood/anxiety. Patient was also started on melatonin 10 mg daily at bedtime for sleep. Patient spoke of her stressors and engaged in therapy both group and individual. Patient was also seen by medical team for history and physical exam. Throughout the course of the hospitalization patient gradually improved with regards to mood stabilization, psychosis, sleep and became more future oriented with improved insight and judgment. On the day of discharge patient denied any suicidal or homicidal ideations intent or plan denied any auditory or visual hallucinations. Patient endorsed wanting to live for her future and her family. The patient denied any access to guns or weapons. Patient denied any paranoia and did not endorse any delusions. Patient does not have a significant history of substance abuse however was counseled on abstaining from all substances including alcohol and marijuana. Patient was also counseled on the medications and need for regular compliance and was encouraged to follow-up with their outpatient appointment for mental health and also for primary care. Prior to discharge a family meeting will be arranged by social work professor to answer any questions and ensure safety upon discharge. Mental status exam: General Appearance: Patient appears to be short in stature, stated age is alert, pleasant, and cooperative. Patient is in no acute distress and has improved hygiene and grooming Behavior: Patient is calmly seated without any agitated behavior. Speech: Patient's speech is fluent and nonpressured. Mood/Affect: Patient reports their mood is "better", affect is congruent and euthymic. Suicidality/Homicidality: Patient denies having any suicidal or homicidal ideation intent or plan. Perceptions: Patient denies any auditory or visual hallucinations. Though content/process: There is no evidence of any delusional thought content and thought process is linear and goal-directed. Memory and concentration: AOX3, grossly intact for the purposes of this session. Can spell "WORLD" backwards correctly. Judgment and insight: improved with guarded prognosis Impression: Schizoaffective disorder, bipolar type Plan: -Continue with discharge today as patient has improved and stabilized psychiatrically and is not currently an imminent threat to herself and/or others. -Continue medications: Seroquel 50 mg daily at bedtime for mood stabilization/psychosis, Lamictal 100 mg daily at bedtime for mood stabilization, Celexa 40 mg daily for mood/anxiety, melatonin 10 mg daily at bedtime for insomnia. -Patient was counseled on the need for medication compliance and appropriate follow-up at mental health and also primary care for medical issues. Patient verbalized understanding and agreed. -Social work to arrange for and conduct family meeting to ensure safety upon discharge and answer any questions/concerns. Social work also to arrange for patients follow up appointments with [facility] for psychiatric care along with follow up with primary care provider. -Patient counseled on abstaining from recreational drugs and marijuana and alcohol. Was informed/educated on the adverse effects on their physical and mental health. Patient verbally agreed and understood. -Patient was instructed to return to the hospital or seek immediate medical care if their psychiatric or medical symptoms do worsen or reoccur. Allergies Allergy/AdvReac Type Severity Reaction Status Date / Time atenolol Allergy Anaphylaxis Verified 11/24/20 16:36 ibuprofen [From Motrin] Allergy Anaphylaxis Verified 11/24/20 16:36 lisinopril Allergy Abdominal Verified 11/24/20 16:36 Pain meloxicam [From Mobic] Allergy Anaphylaxis Verified 11/24/20 16:36 tetracycline Allergy Rash/Hives Verified 11/24/20 16:36 Laboratory Results WBC 8.0 k/uL (3.8-10.6) 11/25/20 06:19 RBC 4.58 m/uL (3.80-5.40) 11/25/20 06:19 Hgb 15.0 gm/dL (11.4-16.0) 11/25/20 06:19 Hct 43.9 % (34.0-46.0) 11/25/20 06:19 MCV 95.9 fL (80.0-100.0) 11/25/20 06:19 MCH 32.7 pg (25.0-35.0) 11/25/20 06:19 MCHC 34.1 g/dL (31.0-37.0) 11/25/20 06:19 RDW 13.0 % (11.5-15.5) 11/25/20 06:19 Plt Count 241 k/uL (150-450) 11/25/20 06:19 MPV 7.2 11/25/20 06:19 Neutrophils % 61 % 11/25/20 06:19 Lymphocytes % 28 % 11/25/20 06:19 Monocytes % 5 % 11/25/20 06:19 Eosinophils % 2 % 11/25/20 06:19 Basophils % 1 % 11/25/20 06:19 Neutrophils # 4.9 k/uL (1.3-7.7) 11/25/20 06:19 Lymphocytes # 2.3 k/uL (1.0-4.8) 11/25/20 06:19 Monocytes # 0.4 k/uL (0-1.0) 11/25/20 06:19 Eosinophils # 0.1 k/uL (0-0.7) 11/25/20 06:19 Basophils # 0.1 k/uL (0-0.2) 11/25/20 06:19 Sodium 138 mmol/L (137-145) 11/26/20 06:54 Potassium 4.0 mmol/L (3.5-5.1) 11/26/20 06:54 Chloride 105 mmol/L (98-107) 11/26/20 06:54 Carbon Dioxide 23 mmol/L (22-30) 11/26/20 06:54 Anion Gap 10 mmol/L 11/26/20 06:54 BUN 11 mg/dL (7-17) 11/26/20 06:54 Creatinine 0.51 mg/dL (0.52-1.04) L 11/26/20 06:54 Est GFR (CKD-EPI)AfAm >90 (>60 ml/min/1.73 sqM) 11/26/20 06:54 Est GFR (CKD-EPI)NonAf >90 (>60 ml/min/1.73 sqM) 11/26/20 06:54 Glucose 107 mg/dL (74-99) H 11/26/20 06:[address] Glu mg/dL 97 11/25/20 06:19 Hemoglobin A1c 5.0 % (4.0-6.0) 11/25/20 06:19 Calcium 9.7 mg/dL (8.4-10.2) 11/26/20 06:54 Total Bilirubin 0.6 mg/dL (0.2-1.3) 11/26/20 06:54 AST 38 U/L (14-36) H 11/26/20 06:54 ALT 36 U/L (4-34) H 11/26/20 06:54 Alkaline Phosphatase 69 U/L (38-126) 11/26/20 06:54 Total Protein 7.1 g/dL (6.3-8.2) 11/26/20 06:54 Albumin 4.2 g/dL (3.5-5.0) 11/26/20 06:54 Triglycerides 180.0 mg/dL (0.0-149.0) H 11/25/20 06:19 Cholesterol 196 mg/dL (0-200) 11/25/20 06:19 LDL Cholesterol, Calc 95.0 mg/dL (0.0-131.0) 11/25/20 06:19 VLDL Cholesterol, Calc 36.00 mg/dL (5.00-40.00) 11/25/20 06:19 HDL Cholesterol 65.0 mg/dL (40.0-60.0) H 11/25/20 06:19 Cholesterol/HDL Ratio 3.02 11/25/20 06:19 TSH 1.190 mIU/L (0.465-4.680) 11/25/20 06:19 Urine Opiates Screen Negative ng/mL (Negative) 11/24/20 Unknown Urine Methadone Screen Negative ng/mL (Negative) 11/24/20 Unknown Ur Propoxyphene Screen Negative ng/mL (Negative) 11/24/20 Unknown Urine Barbiturates Negative ng/mL (Negative) 11/24/20 Unknown Ur Phencyclidine Scrn Negative ng/mL (Negative) 11/24/20 Unknown Ur Amphetamine Screen Negative ng/mL (Negative) 11/24/20 Unknown U Benzodiazepines Scrn Positive ng/mL (Negative) A 11/24/20 Unknown Urine Cocaine Screen Negative ng/mL (Negative) 11/24/20 Unknown U Cannabinoids Screen Negative ng/mL (Negative) 11/24/20 Unknown Urine Alcohol Negative mg/dL (Negative) 11/24/20 Unknown Coronavirus (PCR) Not Detected (Not Detectd) 11/24/20 19:24 Vital Signs Temp 96.7 F L 11/29/20 07:18 Pulse 81 11/29/20 07:18 Resp 14 11/29/20 07:18 BP 133/81 11/29/20 07:18 Pulse Ox 96 11/28/20 06:18 Patient Condition at Discharge: Stable Plan - Discharge Summary Discharge Rx Participant: No New Discharge Prescriptions: New Loperamide [Imodium] 2 mg PO QID PRN cap PRN Reason: Diarrhea QUEtiapine [SEROquel] 50 mg PO HS 30 Days tab Azelastine HCl [Astepro] 2 spray NASAL BID PRN #1 PRN Reason: Allergy Symptoms Citalopram Hydrobromide [CeleXA] 40 mg PO DAILY 30 Days tab Melatonin 10 mg PO HS 30 Days tablet Continue Aspirin 81 mg PO DAILY Fluticasone Propionate [Flovent Hfa 110 mcg] 2 puff INHALATION DAILY Albuterol Sulfate [Ventolin HFA] 1 - 2 puff INHALATION Q6H PRN PRN Reason: Shortness Of Breath Or Wheezing Multivitamins, Thera [Multivitamin (formulary)] 1 tab PO DAILY valACYclovir [Valtrex] 500 mg PO BID PRN PRN Reason: FLARE UP amLODIPine [Norvasc] 5 mg PO HS Pantoprazole Sodium [Protonix] 40 mg PO HS Loratadine [Claritin] 5 mg PO DAILY Acetaminophen [Tylenol Extra Strength] 500 mg PO TID PRN PRN Reason: Pain Psyllium Husk (with Sugar) [Metamucil Powder] 2 tsp PO DAILY Albuterol Nebulized [Ventolin Nebulized] 2.5 mg INHALATION BID Montelukast Sodium [Singulair] 10 mg PO HS 30 Days tab lamoTRIgine [LaMICtal] 100 mg PO HS 30 Days tab Discontinued diazePAM [Valium] 5 mg PO BID Methocarbamol [Robaxin-750] 750 mg PO TID traZODone HCL [Desyrel] 100 mg PO HS Citalopram Hydrobromide [CeleXA] 40 mg PO HS Promethazine HCl [Phenergan Syrup] 20 ml PO DAILY PRN PRN Reason: Cough Amoxicillin 500 mg PO Q8HR #300 ml predniSONE [Deltasone] 20 mg PO DIRECTED #5 tab HYDROcodone/APAP 5-325MG [H[place]ckley 5-325] 1 - 2 tab PO Q6H PRN 3 Days #24 tab PRN Reason: Pain predniSONE 50 mg PO DAILY #5 tab Discharge Medication List Acetaminophen [Tylenol Extra Strength] 500 mg PO TID PRN 02/06/20 [History] Albuterol Nebulized [Ventolin Nebulized] 2.5 mg INHALATION BID 02/06/20 [History] Albuterol Sulfate [Ventolin HFA] 1 - 2 puff INHALATION Q6H PRN 02/06/20 [History] Aspirin 81 mg PO DAILY 02/06/20 [History] Fluticasone Propionate [Flovent Hfa 110 mcg] 2 puff INHALATION DAILY 02/06/20 [History] Loratadine [Claritin] 5 mg PO DAILY 02/06/20 [History] Multivitamins, Thera [Multivitamin (formulary)] 1 tab PO DAILY 02/06/20 [History] Pantoprazole Sodium [Protonix] 40 mg PO HS 02/06/20 [History] Psyllium Husk (with Sugar) [Metamucil Powder] 2 tsp PO DAILY 02/06/20 [History] amLODIPine [Norvasc] 5 mg PO HS 02/06/20 [History] valACYclovir [Valtrex] 500 mg PO BID PRN 02/06/20 [History] Azelastine HCl [Astepro] 2 spray NASAL BID PRN #1 11/29/20 [Rx] Citalopram Hydrobromide [CeleXA] 40 mg PO DAILY 30 Days tab 11/29/20 [Rx] Loperamide [Imodium] 2 mg PO QID PRN cap 11/29/20 [Rx] Melatonin 10 mg PO HS 30 Days tablet 11/29/20 [Rx] Montelukast Sodium [Singulair] 10 mg PO HS 30 Days tab 11/29/20 [Rx] QUEtiapine [SEROquel] 50 mg PO HS 30 Days tab 11/29/20 [Rx] lamoTRIgine [LaMICtal] 100 mg PO HS 30 Days tab 11/29/20 [Rx] Follow up Appointment(s)/Referral(s): [facility] [Outside] - 12/06/20 8:00 am (Intake at [facility] office with Judie) John Albert MD [Primary Care Provider] - 1-2 days Activity/Diet/Wound Care/Special Instructions: Activity and diet as tolerated. Avoid the use of street drugs and alcohol. Take all medications as prescribed. When you are in need of refills on your med ications please contact your medical provider and/or outpatient psychiatrist to have this done. Please go to scheduled outpatient appointment for aftercare treatment. If symptoms return or become worse, call the crisis line at and/or go to the nearest emergency room for evaluation. Discharge Disposition: HOME SELF-CARE
[2020-11-29] MEDS: valACYclovir 500 MG TAB PO PRN (11:57)
== END 2020-11-29 14:12 | disposition home or self-care (01) | DRG 885 ==
LOC: EC 16:17 → 3MHU 20:15
PROVIDERS: ADMIT Psychiatry & Neurology Psychiatry; ATTEND Psychiatry & Neurology Psychiatry
DX: F25.0 Schizoaffective disorder, bipolar type (principal); F41.0 Panic disorder [episodic paroxysmal anxiety]; Z20.822 Contact with and (suspected) exposure to COVID-19; J45.909 Unspecified asthma, uncomplicated; K21.9 Gastro-esophageal reflux disease without esophagitis; G47.33 Obstructive sleep apnea (adult) (pediatric); I10 Essential (primary) hypertension; K44.9 Diaphragmatic hernia without obstruction or gangrene; K58.9 Irritable bowel syndrome, unspecified; G47.00 Insomnia, unspecified; M19.90 Unspecified osteoarthritis, unspecified site; M26.609 Unspecified temporomandibular joint disorder, unspecified side; Z79.82 Long term (current) use of aspirin; Z79.51 Long term (current) use of inhaled steroids; Z79.52 Long term (current) use of systemic steroids; Z79.899 Other long term (current) drug therapy; Z90.89 Acquired absence of other organs; Z86.69 Personal history of other diseases of the nervous system and sense organs; Z87.19 Personal history of other diseases of the digestive system; Z90.49 Acquired absence of other specified parts of digestive tract; Z87.891 Personal history of nicotine dependence; Z87.39 Personal history of other diseases of the musculoskeletal system and connective tissue; Z98.890 Other specified postprocedural states; Z88.6 Allergy status to analgesic agent; Z88.1 Allergy status to other antibiotic agents; Z88.8 Allergy status to other drugs, medicaments and biological substances
CPT/HCPCS: 80053; 80061; 80306; 82075; 83036; 84443; 85025; 87635; 96372; 99285

== ENCOUNTER 2022-07-29 12:22 | Emergency (ER) | payer MEDICARE, OTHER ==
[2022-07-29 12:29] VITALS: TEMP 98.2
[2022-07-29 13:00] VITALS: RESP 18
[2022-07-29] MEDS ORDERED: hydrALAZINE HCL 20 MG/ML 1 ML VIAL IVP STA (13:01)
--- NOTE | 2022-07-29 13:14 | ED ---
General Adult HPI - General Chief complaint: Headache Stated complaint: HIGH BP Time Seen by Provider: 07/29/22 12:30 Source: patient, RN notes reviewed, old records reviewed Mode of arrival: ambulatory Limitations: no limitations - History of Present Illness Initial comments: This is a 62-year-old female has past medical history significant for migraine headaches as well as high blood pressure. Patient states about 6 weeks ago she started getting headaches mostly on the left side of her head. Patient states that it was intermittent at first but for the last couple of weeks is been every single day. Patient states she sometimes gets some blurred vision out of that eye but she currently does not have any blurred vision. Patient states she's f ollowing up with Dr. Fontana for TMJ and in the office her blood pressure was approximately 220/120. She came to the emergency department per patient denies any numbness or weakness currently patient denies any blurred vision currently. Patient does still complain of a headache. Patient states is not as bad as it has been. Patient denies chest pain difficulty breathing shortness of breath. Patient denies any abdominal pain patient denies nausea vomiting diarrhea. Patient denies any recent fever chills or cough - Related Data Home Medications Medication Instructions Recorded Confirmed Acetaminophen [Tylenol Extra 500 mg PO TID PRN 02/06/20 11/24/20 Strength] Albuterol Nebulized [Ventolin 2.5 mg INHALATION BID 02/06/20 11/24/20 Nebulized] Albuterol Sulfate [Ventolin HFA] 1 - 2 puff INHALATION Q6H PRN 02/06/20 11/24/20 Aspirin 81 mg PO DAILY 02/06/20 11/24/20 Fluticasone Propionate [Flovent 2 puff INHALATION DAILY 02/06/20 11/24/20 Hfa 110 mcg] Loratadine [Claritin] 5 mg PO DAILY 02/06/20 11/24/20 Multivitamins, Thera [Multivitamin 1 tab PO DAILY 02/06/20 11/24/20 (formulary)] Pantoprazole Sodium [Protonix] 40 mg PO HS 02/06/20 11/24/20 Psyllium Husk (with Sugar) 2 tsp PO DAILY 02/06/20 11/24/20 [Metamucil Powder] amLODIPine [Norvasc] 5 mg PO HS 02/06/20 11/24/20 valACYclovir HCL [Valtrex] 500 mg PO BID PRN 02/06/20 11/24/20 Previous Rx's Medication Instructions Recorded Azelastine HCl [Astepro] 2 spray NASAL BID PRN #1 11/29/20 Citalopram Hydrobromide [CeleXA] 40 mg PO DAILY 30 Days tab 11/29/20 Loperamide [Imodium] 2 mg PO QID PRN cap 11/29/20 Melatonin 10 mg PO HS 30 Days tablet 11/29/20 Montelukast Sodium [Singulair] 10 mg PO HS 30 Days tab 11/29/20 QUEtiapine [SEROquel] 50 mg PO HS 30 Days tab 11/29/20 lamoTRIgine [LaMICtal] 100 mg PO HS 30 Days tab 11/29/20 Allergies Allergy/AdvReac Type Severity Reaction Status Date / Time aripiprazole [From Abilify] Allergy Unknown Verified 07/29/22 12:30 atenolol Allergy Anaphylaxis Verified 07/29/22 12:29 ibuprofen [From Motrin] Allergy Anaphylaxis Verified 07/29/22 12:29 lamotrigine [From Lamictal] Allergy Unknown Verified 07/29/22 12:30 lisinopril Allergy Abdominal Verified 07/29/22 12:29 Pain meloxicam [From Mobic] Allergy Anaphylaxis Verified 07/29/22 12:29 Penicillins Allergy Unknown Verified 07/29/22 12:30 quetiapine [From Seroquel] Allergy Unknown Verified 07/29/22 12:30 tetracycline Allergy Rash/Hives Verified 07/29/22 12:29 Review of Systems ROS Statement: Those systems with pertinent positive or pertinent negative responses have been documented in the HPI. ROS Other: All systems not noted in ROS Statement are negative. Past Medical History Past Medical History: Asthma, GERD/Reflux, Hypertension, Osteoarthritis (OA), Sleep Apnea/CPAP/BIPAP Additional Past Medical History / Comment(s): MIGRAINE HEADACHE, TMJ , C PAP , HIATAL HERNIA, History of Any Multi-Drug Resistant Organisms: None Reported Past Surgical History: Adenoidectomy, Appendectomy, Cholecystectomy, Orthopedic Surgery, Tonsillectomy Additional Past Surgical History / Comment(s): BOWEL RESECTION X2 , MYOMECTOMY X3 , BILATERAL CARPAL TUNNEL RELEASE , LEFT ARTHROSCOPIC KNEE X3 Past Anesthesia/Blood Transfusion Reactions: No Reported Reaction Past Psychological History: Anxiety, Bipolar, Depression, Panic Disorder, Schizophrenia Smoking Status: Former smoker Past Alcohol Use History: Occasional Past Drug Use History: None Reported General Exam - General Exam Comments Initial Comments: GENERAL: Patient is well-developed and well-nourished. Patient is nontoxic and well- hydrated and is in mild distress. ENT: Neck is soft and supple. No significant lymphadenopathy is noted. Oropharynx is clear. Moist mucous membranes. Neck has full range of motion without eliciting any pain. EYES: The sclera were anicteric and conjunctiva were pink and moist. Extraocular movements were intact and pupils were equal round and reactive to light. Eyelids were unremarkable. PULMONARY: Unlabored respirations. Good breath sounds bilaterally. No audible rales rhonchi or wheezing was noted. CARDIOVASCULAR: There is a regular rate and rhythm without any murmurs gallops or rubs. ABDOMEN: Soft and nontender with normal bowel sounds. SKIN: Skin is clear with no lesions or rashes and otherwise unremarkable. NEUROLOGIC: Patient is alert and oriented x3. Cranial nerves II through XII are grossly intact. Motor and sensory are also intact. Normal speech, volume and content. Symmetrical smile. MUSCULOSKELETAL: Normal extremities with adequate strength and full range of motion. No lower extremity swelling or edema. No calf tenderness. LYMPHATICS: No significant lymphadenopathy is noted PSYCHIATRIC: Normal psychiatric evaluation. Limitations: no limitations Course Vital Signs 07/29/22 07/29/22 07/29/22 12:25 12:58 14:54 Temperature 98.2 F Pulse Rate 66 61 57 L Respiratory 16 18 18 Rate Blood Pressure 155/90 149/85 177/81 O2 Sat by Pulse 98 100 97 Oximetry Medical Decision Making - Medical Decision Making EKG was interpreted by myself that shows a sinus rhythm at 64 bpm MS interval 297 QRS is 94 QT interval 340 QTC is 440. Patient's EKG shows no ST segment elevation or depression. Was pt. sent in by a medical professional or institution (, [facility], [employer], urgent care, hospital, or senior living...) When possible be specific @ -Patient's ENT center and to the emergency department Did you speak to anyone other than the patient for history (EMS, parent, family, police, friend...)? What history was obtained from this source @ -No Did you review nursing and triage notes (agree or disagree)? Why? @ -I reviewed and agree with nursing and triage notes Were old charts reviewed (outside hosp., previous admission, EMS record, old EKG, old radiological studies, urgent care reports/EKG's, senior living records)? Report findings @ -I reviewed prior charts and lab work on this patient Differential Diagnosis (chest pain, altered mental status, abdominal pain women, abdominal pain men, vaginal bleeding, weakness, fever, dyspnea, syncope, headache, dizziness, GI bleed, back pain, seizure, CVA, palpatations, mental health, musculoskeletal)? @ -Differential Headache: Migraine, tension, cluster, carbon monoxide, central venous thrombosis, pension karma temporal arteritis, acute closure glaucoma, intercranial hemorrhage, mastoiditis, sinusitis, head injury, this is not meant to be an all-inclusive list. EKG interpreted by me (3pts min.). @ -As above X-rays interpreted by me (1pt min.). @ -Chest x-ray was interpreted by myself I see no acute abnormality CT interpreted by me (1pt min.). @ -CT of the brain was interpreted by myself I see no acute abnormality U/S interpreted by me (1pt. min.). @ -None done What testing was considered but not performed or refused? (CT, X-rays, U/S, labs)? Why? @ -None What meds were considered but not given or refused? Why? @ -None Did you discuss the management of the patient with other professionals (professionals i.e. , PA, [employer] SE[employer], lab, RT, psych nurse, social media project manager, quality improvement coordinator (rn), teacher, labor relations officer, community case manager)? Give summary @ -No Was smoking cessation discussed for >3mins.? @ -No Was critical care preformed (if so, how long)? @ -No Were there social determinants of health that impacted care today? How? (Homelessness, low income, unemployed, alcoholism, drug addiction, transportation, low edu. Level, literacy, decrease access to med. care, senior care, rehab)? @ -No Was there de-escalation of care discussed even if they declined (Discuss DNR or withdrawal of care, Hospice)? DNR status @ -No What co-morbidities impacted this encounter? (DM, HTN, Smoking, COPD, CAD, Ca ncer, CVA, ARF, Chemo, Hep., AIDS, mental health diagnosis, sleep apnea, morbid obesity)? @ -None Was patient admitted / discharged? Hospital course, mention meds given and route, prescriptions, significant lab abnormalities, going to OR and other pertinent info. @ -Patient had a CT which is normal lab work was essentially normal as was the chest x-ray. I went back in the room to reevaluate the patient she continued to have a headache but no neurologic deficits I told her I give her some medications and try to control the headache she refused and stated she wanted to go home and take her regular occasions and follow-up as an outpatient I indicated to her we could give her something before she left but she need a ride home and she indicated to me that she did not want to call her mother because right now they are not getting along. Patient states she'll leave with the headache and she is okay with this and she has had a headache for 6 weeks Undiagnosed new problem with uncertain prognosis? @ -No Drug Therapy requiring intensive monitoring for toxicity (Heparin, Nitro, Insulin, Cardizem)? @ -No Were any procedures done? @ -No Diagnosis/symptom? @ -Cephalgia Acute, or Chronic, or Acute on Chronic? @ -Acute Uncomplicated (without systemic symptoms) or Complicated (systemic symptoms)? @ -Complicated Side effects of treatment? @ -No Exacerbation, Progression, or Severe Exacerbation? @ -No Poses a threat to life or bodily function? How? (Chest pain, [place], HI, pneumonia, PE, COPD, DKA, ARF, appy, cholecystitis, CVA, Diverticulitis, Homicidal, Suicidal, threat to staff... and all critical care pts) @ -No - Lab Data Result diagrams: 07/29/22 13:32 07/29/22 13:32 Lab Results 07/29/22 07/29/22 07/29/22 Range/Units 13:32 13:32 13:32 WBC 10.9 H (3.8-10.6) k/uL RBC 4.24 (3.80-5.40) m/uL Hgb 13.1 (11.4-16.0) gm/dL Hct 39.5 (34.0-46.0) % MCV 93.0 (80.0-100.0) fL MCH 30.8 (25.0-35.0) pg MCHC 33.1 (31.0-37.0) g/dL RDW 12.0 (11.5-15.5) % Plt Count 274 (150-450) k/uL MPV 8.2 Neutrophils % 80 % Lymphocytes % 14 % Monocytes % 5 % Eosinophils % 1 % Basophils % 0 % Neutrophils # 8.7 H (1.3-7.7) k/uL Lymphocytes # 1.5 (1.0-4.8) k/uL Monocytes # 0.5 (0-1.0) k/uL Eosinophils # 0.1 (0-0.7) k/uL Basophils # 0.0 (0-0.2) k/uL PT 10.4 (9.0-12.0) sec INR 1.0 (<1.2) APTT 24.1 (22.0-30.0) sec Sodium 137 (137-145) mmol/L Potassium 3.9 (3.5-5.1) mmol/L Chloride 104 (98-107) mmol/L Carbon Dioxide 24 (22-30) mmol/L Anion Gap 9 mmol/L BUN 12 (7-17) mg/dL Creatinine 0.48 L (0.52-1.04) mg/dL Est GFR (CKD-EPI)AfAm >90 (>60 ml/min/1.73 sqM) Est GFR (CKD-EPI)NonAf >90 (>60 ml/min/1.73 sqM) Glucose 93 (74-99) mg/dL Calcium 9.1 (8.4-10.2) mg/dL Magnesium 2.1 (1.6-2.3) mg/dL Total Bilirubin 0.7 (0.2-1.3) mg/dL AST 38 H (14-36) U/L ALT 43 H (4-34) U/L Alkaline Phosphatase 64 (38-126) U/L Troponin I (0.000-0.034) ng/mL Total Protein 7.0 (6.3-8.2) g/dL Albumin 4.3 (3.5-5.0) g/dL 07/29/22 Range/Units 13:32 WBC (3.8-10.6) k/uL RBC (3.80-5.40) m/uL Hgb (11.4-16.0) gm/dL Hct (34.0-46.0) % MCV (80.0-100.0) fL MCH (25.0-35.0) pg MCHC (31.0-37.0) g/dL RDW (11.5-15.5) % Plt Count (150-450) k/uL MPV Neutrophils % % Lymphocytes % % Monocytes % % Eosinophils % % Basophils % % Neutrophils # (1.3-7.7) k/uL Lymphocytes # (1.0-4.8) k/uL Monocytes # (0-1.0) k/uL Eosinophils # (0-0.7) k/uL Basophils # (0-0.2) k/uL PT (9.0-12.0) sec INR (<1.2) APTT (22.0-30.0) sec Sodium (137-145) mmol/L Potassium (3.5-5.1) mmol/L Chloride (98-107) mmol/L Carbon Dioxide (22-30) mmol/L Anion Gap mmol/L BUN (7-17) mg/dL Creatinine (0.52-1.04) mg/dL Est GFR (CKD-EPI)AfAm (>60 ml/min/1.73 sqM) Est GFR (CKD-EPI)NonAf (>60 ml/min/1.73 sqM) Glucose (74-99) mg/dL Calcium (8.4-10.2) mg/dL Magnesium (1.6-2.3) mg/dL Total Bilirubin (0.2-1.3) mg/dL AST (14-36) U/L ALT (4-34) U/L Alkaline Phosphatase (38-126) U/L Troponin I <0.012 (0.000-0.034) ng/mL Total Protein (6.3-8.2) g/dL Albumin (3.5-5.0) g/dL Disposition Clinical Impression: Cephalgia Disposition: HOME SELF-CARE Condition: Good Instructions (If sedation given, give patient instructions): Acute Headache (ED) Additional Instructions: Patient should return if symptoms worsen or she has new symptoms. Is patient prescribed a controlled substance at d/c from ED?: No Referrals: John Albert MD [Primary Care Provider] - 1-2 days Time of Disposition: 16:01
--- NOTE | 2022-07-29 13:56 | XR ---
EXAMINATION TYPE: XR chest 2V DATE OF EXAM: 07/29/2022 1:52 PM COMPARISON: None TECHNIQUE: XR chest 2V Frontal and lateral views of the chest. CLINICAL INDICATION:Female, 62 years old with history of Chest Pain; FINDINGS: Lungs/Pleura: There is no evidence of pleural effusion, focal consolidation, or pneumothorax. Pulmonary vascularity: Unremarkable. Heart/mediastinum: Cardiomediastinal silhouette is unremarkable. Musculoskeletal: No acute osseous pathology. Remote appearing right seventh and eighth rib fractures. Mild degenerative changes of the thoracic spine. Other: Cholecystectomy clips in the right upper quadrant. IMPRESSION: No acute cardiopulmonary disease/process.
--- NOTE | 2022-07-29 14:08 | CT ---
EXAMINATION TYPE: CT brain wo con DATE OF EXAM: 07/29/2022 COMPARISON: None INDICATION: Headache DLP: 1129.8 mGycm, Automated exposure control for dose reduction was used. CONTRAST: None CT of the brain is performed utilizing 3 mm thick sections through the posterior fossa and 3 mm thick sections through the remaining calvarium. Study is performed within 24 hours of arrival to the hosp ital. No abnormal hyperdensity is present to suggest an acute intracranial hemorrhage. No mass lesion is evident. No acute infarcts are evident. Ventricles and sulci are appropriate for the patient age. Paranasal sinuses and mastoid air cells within the [id number] are clear. Septal deviation is evident. IMPRESSIONS: 1. No acute intracranial process. Follow-up MRI can be performed as clinically indicated.
[2022-07-29 15:24] LABS: Basophils % (A) 0 %; Eosinophils # (A) 0.1 k/uL (0-0.7); Eosinophils % (A) 1 %; HCT 39.5 % (34.0-46.0); HGB 13.1 gm/dL (11.4-16.0); Lymphocytes # (A) 1.5 k/uL (1.0-4.8); Lymphocytes % (A) 14 %; MCH 30.8 pg (25.0-35.0); MCHC 33.1 g/dL (31.0-37.0); Mean Platelet Volume 8.2; Monocytes # (A) 0.5 k/uL (0-1.0); Monocytes % (A) 5 %; Neutrophils # (A) 8.7 k/uL (1.3-7.7); Neutrophils % (A) 80 %; Platelet Count 274 k/uL (150-450); RBC 4.24 m/uL (3.80-5.40); WBC 10.9 k/uL (3.8-10.6)
[2022-07-29 15:25] LABS: ALT 43 U/L (4-34); African American GFR (CKD) >90 (>60 ml/min/1.73 sqM); Albumin 4.3 g/dL (3.5-5.0); Anion Gap 9 mmol/L; Blood Urea Nitrogen 12 mg/dL (7-17); Calcium 9.1 mg/dL (8.4-10.2); Carbon Dioxide 24 mmol/L (22-30); Chloride 104 mmol/L (98-107); Glucose 93 mg/dL (74-99); Non-African American GFR(CKD) >90 (>60 ml/min/1.73 sqM); Partial Thromboplastin Time 24.1 sec (22.0-30.0); Prothrombin Time 10.4 sec (9.0-12.0); Sodium 137 mmol/L (137-145); Total Bilirubin 0.7 mg/dL (0.2-1.3)
[2022-07-29 15:30] LABS: AST 38 U/L (14-36); Alkaline Phosphatase 64 U/L (38-126); Magnesium 2.1 mg/dL (1.6-2.3); Potassium 3.9 mmol/L (3.5-5.1)
[2022-07-29] MEDS ORDERED: DEXAMETHASONE SOD PHOSPHATE 10 MG/ML 1 ML VIAL IVP STA (15:50)
[2022-07-29] MEDS ORDERED: ACET/COD 300 MG/30 MG STARTER PACK 6 TAB BTL PO STA (16:02)
[2022-07-29 16:59] VITALS: BP 134/67; PULSE 63
== END 2022-07-29 17:12 | disposition home or self-care (01) ==
LOC: EC 12:22
DX: R51.9 Headache, unspecified (principal); I10 Essential (primary) hypertension; J45.909 Unspecified asthma, uncomplicated; K21.9 Gastro-esophageal reflux disease without esophagitis; Z79.51 Long term (current) use of inhaled steroids; Z79.82 Long term (current) use of aspirin; Z79.899 Other long term (current) drug therapy; Z87.891 Personal history of nicotine dependence; Z88.0 Allergy status to penicillin; Z88.1 Allergy status to other antibiotic agents; Z88.6 Allergy status to analgesic agent; Z88.8 Allergy status to other drugs, medicaments and biological substances; Z90.49 Acquired absence of other specified parts of digestive tract
CPT/HCPCS: 36415; 93005; 80053; 83735; 84484; 85025; 85610; 85730; 71046; 70450; 99285; 96374; 96375; J0360; J1100

== ENCOUNTER → 2022-07-29 | Outpatient (CLI) | payer MEDICARE, OTHER ==
[2022-07-30 14:40] LABS: Lettuce IgE Class CLASS 0; Pork IgE Class CLASS 0
[2022-07-30 14:41] LABS: Apple IgE Class CLASS 0; Beef IgE <0.10 kU/L (<0.10); Beef IgE Class CLASS 0; Potato IgE <0.10 kU/L (<0.10); Potato IgE Class CLASS 0; Yeast Bakers/Brew IgE <0.10 kU/L (<0.10); Yeast Bakers/Brew IgE Class CLASS 0
[2022-07-30 14:42] LABS: Celery IgE <0.10 kU/L (<0.10); Celery IgE Class CLASS 0; Chicken IgE Class CLASS 0; Egg Yolk IgE Class CLASS 0; Gluten IgE Class CLASS 0; Oat IgE Class CLASS 0; Onion IgE <0.10 kU/L (<0.10); Onion IgE Class CLASS 0
[2022-07-30 14:43] LABS: Almond IgE <0.10 kU/L (<0.10); Almond IgE Class CLASS 0; Banana IgE Class CLASS 0; Brazil Nut IgE <0.10 kU/L (<0.10); Brazil Nut IgE Class CLASS 0; Cashew IgE <0.10 kU/L (<0.10); Cashew IgE Class CLASS 0; Chocolate IgE Class CLASS 0; Coffee IgE <0.10 kU/L (<0.10); Coffee IgE Class CLASS 0; Hazelnut IgE <0.10 kU/L (<0.10); Hazelnut IgE Class CLASS 0; Macadamia Nut IgE <0.10 kU/L (<0.10); Macadamia Nut IgE Class CLASS 0; Peanut IgE <0.10 kU/L (<0.10); Pecan IgE <0.10 kU/L (<0.10); Pecan IgE Class CLASS 0; Pine Nut, Pignoles IgE <0.10 kU/L (<0.10); Pine Nut, Pignoles IgE Class CLASS 0; Pistachio IgE Class CLASS 0; Sweet Chestnut IgE <0.10 kU/L (<0.10); Sweet Chestnut IgE Class CLASS 0; Tea IgE <0.10 kU/L (<0.10); Tea IgE Class CLASS 0; Walnut (Food) IgE Class CLASS 0; Walnut IgE (Food) <0.10 kU/L (<0.10)
[2022-07-30 17:17] LABS: Clam IgE <0.10 kU/L; Codfish IgE <0.10 kU/L; Egg White IgE <0.10 kU/L; Peanut IgE <0.10 kU/L; Scallop IgE <0.10 kU/L; Shrimp IgE <0.10 kU/L; Soybean IgE <0.10 kU/L; Walnut IgE (Food) <0.10 kU/L
== END | disposition home or self-care (01) ==
LOC: LABWHC1 10:13
PROVIDERS: ATTEND Otolaryngology
DX: J30.89 Other allergic rhinitis (principal)
CPT/HCPCS: 36415; 82785; 86003

== ENCOUNTER → 2022-08-10 | Outpatient (CLI) | payer MEDICARE, OTHER ==
--- NOTE | 2022-08-10 10:35 | MR ---
EXAMINATION TYPE: MR brain and iac wo/w con DATE OF EXAM: 08/10/2022 COMPARISON: 02/13/[address] brain 07/29/2022 HISTORY: 62-year-old female H90.42, Headaches, left sided neck and ear pain/hearing loss. TECHNIQUE: Multiplanar, multisequence images of the brain and brainstem were acquired before and aft er administration of 8 mL IV Gadavist. Diffusion weighted imaging was performed. Additional coned-d own sequences through the internal auditory canals and posterior cranial fossa before and after IV co ntrast administration. FINDINGS: Diffusion weighted images demonstrate no evidence of an acute ischemic lesion in the brain. T2/FLAIR weighted sequences show minimal scattered bright signal foci in the subcortical region of rylee th cervical hemispheres, less than 5 on each side. Midline structures demonstrates normal morphology. The craniocervical junction is normal. There is mild to moderate bifrontal cerebral volume loss, similar to prior. The ventricles are of nor mal caliber. There is no evidence of an acute intracranial hemorrhage, infarct, mass, mass-effect or an extra-axia l fluid collection. There is no cerebellopontine angle mass. The internal auditory canals are symmetric. Brainstem and skull base abnormalities are not seen. Post contrast images demonstrate no evidence of pathologic enhancement in the posterior cranial yon a or the internal auditory canals. There is no abnormal enhancement of the labyrinths. There is mild mucosal thickening within the ethmoid air cells. Slight leftward nasal septal deviation . Globes are intact. IMPRESSION: 1. Mild to moderate bifrontal cerebral atrophy, fairly similar to the 2019 exam. Minimal scattered bu rden of chronic small vessel ischemic disease. 2. No acute intracranial abnormality seen. 3. No specific abnormality on acoustic MRI. 4. Mild chronic ethmoid sinus disease.
== END | disposition home or self-care (01) ==
LOC: RADMRIMAIN 08:59
PROVIDERS: ATTEND Otolaryngology
DX: J32.2 Chronic ethmoidal sinusitis (principal); I67.82 Cerebral ischemia; G31.9 Degenerative disease of nervous system, unspecified; H90.42 Sensorineural hearing loss, unilateral, left ear, with unrestricted hearing on the contralateral side
CPT/HCPCS: 70553; A9585

== ENCOUNTER 2024-08-01 11:39 | Emergency (ER) | payer MEDICARE, OTHER ==
[2024-08-01 12:57] LABS: Influenza A Not Detected (Not Detectd); Influenza B Not Detected (Not Detectd); RSV Not Detected (Not Detectd)
--- NOTE | 2024-08-01 13:12 | XR ---
EXAMINATION TYPE: XR chest 2V DATE OF EXAM: 08/01/2024 12:36 PM COMPARISON: 07/29/2022 CLINICAL INDICATION: Female, 64 years old with history of cough, , TECHNIQUE: PA and lateral views FINDINGS: Heart normal size. Aorta and pulmonary vasculature within normal limits. Old right posterolateral rib fracture deformities redemonstrated. Mild hyperinflation and mild interstitial prominence is unchang ed. No consolidation or pleural effusion. IMPRESSION: Possible underlying COPD. Clinically correlate. Old right-sided rib fracture deformities. No definite acute process. [facility], Workstation: [facility], 08/01/2024 1:09 PM
--- NOTE | 2024-08-01 13:23 | ED ---
URI HPI - General Chief Complaint: Upper Respiratory Infection Stated Complaint: SOB Time Seen by Provider: 08/01/24 11:53 Source: patient, RN notes reviewed Mode of arrival: ambulatory Limitations: no limitations - History of Present Illness Initial Comments: 64-year-old female presents emergency department complaining of leg symptoms. Patient states she is not felt well the last 5 to 6 days. Patient was placed in antibiotics states she has had no improvement other than causing her to have diarrhea. Patient states she has cough congestion sore throat chills sweats. Patient denies any chest pain denies any reports of fever no bodyaches. Patient states her mother has similar symptoms when she started with the symptoms first. - Related Data Home Medications Medication Instructions Recorded Confirmed Acetaminophen [Tylenol Extra 1,000 mg PO Q6H PRN 02/06/20 07/29/22 Strength] Albuterol Nebulized [Ventolin 2.5 mg INHALATION RT-QID PRN 02/06/20 07/29/22 Nebulized] Albuterol Sulfate [Ventolin HFA] 1 - 2 puff INHALATION Q6H PRN 02/06/20 07/29/22 Fluticasone Propionate [Flovent 2 puff INHALATION RT-DAILY 02/06/20 07/29/22 Hfa 110 mcg] Pantoprazole Sodium [Protonix] 40 mg PO HS 02/06/20 07/29/22 amLODIPine [Norvasc] 5 mg PO HS 02/06/20 07/29/22 valACYclovir HCL [Valtrex] 500 mg PO BID PRN 02/06/20 07/29/22 Citalopram Hydrobromide [CeleXA] 20 mg PO DAILY 07/29/22 07/29/22 Melatonin [Melatonin Dissolving] 12 mg PO BID@2200,0300 07/29/22 07/29/22 Rizatriptan Odt [Maxalt Quality Assurance Supervisor Body] 10 mg PO BID PRN 07/29/22 07/29/22 diazePAM [Valium] 5 mg PO HS 07/29/22 07/29/22 diphenhydrAMINE [Benadryl] 25 - 50 mg PO Q4H PRN 07/29/22 07/29/22 guaiFENesin [Mucinex] 600 mg PO Q12H PRN 07/29/22 07/29/22 methocarbamoL [Methocarbamol] 750 mg PO DAILY PRN 07/29/22 07/29/22 Previous Rx's Medication Instructions Recorded Montelukast Sodium [Singulair] 10 mg PO HS 30 Days tab 11/29/20 Benzonatate [Tessalon Perle] 200 mg PO TID PRN #20 capsule 08/01/24 Allergies Allergy/AdvReac Type Severity Reaction Status Date / Time atenolol Allergy Anaphylaxis Verified 08/01/24 11:52 ibuprofen [From Motrin] Allergy IBS Verified 08/01/24 11:52 issues, burning in throat lisinopril Allergy Anaphylaxis Verified 08/01/24 11:52 meloxicam [From Mobic] Allergy IBS Verified 08/01/24 11:52 issues, burning in throat Penicillins Allergy Anaphylaxis Verified 08/01/24 11:52 tetracycline Allergy hives/rash Verified 08/01/24 11:52 aripiprazole [From Abilify] AdvReac Tardive Verified 08/01/24 11:52 dyskinesia, spasms fluticasone furoate AdvReac Wheezing Verified 08/01/24 11:52 [From Arnuity Ellipta] lamotrigine [From Lamictal] AdvReac Tardive Verified 08/01/24 11:52 dyskinesia, spasms quetiapine [From Seroquel] AdvReac Tardive Verified 08/01/24 11:52 dyskinesia, spasms Review of Systems ROS Statement: Those systems with pertinent positive or pertinent negative responses have been documented in the HPI. ROS Other: All systems not noted in ROS Statement are negative. Past Medical History Past Medical History: Asthma, GERD/Reflux, Hypertension, Osteoarthritis (OA), Sleep Apnea/CPAP/BIPAP Additional Past Medical History / Comment(s): MIGRAINE HEADACHE, TMJ , C PAP , HIATAL HERNIA, History of Any Multi-Drug Resistant Organisms: None Reported Past Surgical History: Adenoidectomy, Appendectomy, Cholecystectomy, Orthopedic Surgery, Tonsillectomy Additional Past Surgical History / Comment(s): BOWEL RESECTION X2 , MYOMECTOMY X3 , BILATERAL CARPAL TUNNEL RELEASE , LEFT ARTHROSCOPIC KNEE X3 Past Anesthesia/Blood Transfusion Reactions: No Reported Reaction Past Psychological History: Anxiety, Bipolar, Depression, Panic Disorder, Schizophrenia Smoking Status: Former smoker Past Alcohol Use History: Occasional Past Drug Use History: None Reported General Exam Limitations: no limitations General appearance: alert, in no apparent distress Head exam: Present: atraumatic, normocephalic, normal inspection Eye exam: Present: normal appearance, PERRL, EOMI. Absent: scleral icterus, conjunctival injection, periorbital swelling ENT exam: Present: normal exam, normal oropharynx, mucous membranes moist Neck exam: Present: normal inspection. Absent: tenderness, meningismus, lymphadenopathy Respiratory exam: Present: normal lung sounds bilaterally. Absent: respiratory distress, wheezes, rales, rhonchi, stridor Cardiovascular Exam: Present: regular rate, normal rhythm, normal heart sounds. Absent: systolic murmur, diastolic murmur, rubs, gallop, clicks Course Vital Signs 08/01/24 08/01/24 08/01/24 11:48 12:25 13:32 Temperature 99.2 F 98.1 F Pulse Rate 77 71 Respiratory 20 18 16 Rate Blood Pressure 160/85 148/82 O2 Sat by Pulse 98 99 Oximetry Medical Decision Making - Medical Decision Making Was pt. sent in by a medical professional or institution (, PA, A&P TECHNICIAN, urgent care, hospital, or [facility]...) When possible be specific @ -No Did you speak to anyone other than the patient for history (EMS, parent, family, police, friend...)? What history was obtained from this source @ -No Did you review nursing and triage notes (agree or disagree)? Why? @ -I reviewed and agree with nursing and triage notes Were old charts reviewed (outside hosp., previous admission, EMS record, old EKG, old radiological studies, urgent care reports/EKG's, [facility] records)? Report findings @ -No old charts were reviewed Differential Diagnosis (chest pain, altered mental status, abdominal pain women, abdominal pain men, vaginal bleeding, weakness, fever, dyspnea, syncope, headache, dizziness, GI bleed, back pain, seizure, CVA, palpatations, mental health, musculoskeletal)? @COVID 19, RSV, influenza, pneumonia, acute bronchitis, URI, this list is not all inclusive EKG interpreted by me (3pts min.). @ -None X-rays interpreted by me (1pt min.). @ -Chest shows no acute cardiopulmonary process. CT interpreted by me (1pt min.). @ -None done U/S interpreted by me (1pt. min.). @ -None done What testing was considered but not performed or refused? (CT, X-rays, U/S, labs)? Why? @ -None What meds were considered but not given or refused? Why? @ -None Did you discuss the management of the patient with other professionals (professionals i.e. , PA, A&P TECHNICIAN, lab, RT, psych nurse, social sciences research scientist, test department helper, teacher, annual giving officer, case making machine operator)? Give summary @ -No Was smoking cessation discussed for >3mins.? @ -No Was critical care preformed (if so, how long)? @ -No Were there social determinants of health that impacted care today? How? (Homelessness, low income, unemployed, alcoholism, drug addiction, transportation, low edu. Level, literacy, decrease access to med. care, correction, rehab)? @ -No Was there de-escalation of care discussed even if they declined (Discuss DNR or withdrawal of care, Hospice)? DNR status @ -No What co-morbidities impacted this encounter? (DM, HTN, Smoking, COPD, CAD, Cancer, CVA, ARF, Chemo, Hep., AIDS, mental health diagnosis, sleep apnea, morbid obesity)? @ -None Was patient admitted / discharged? Hospital course, mention meds given and route, prescriptions, significant lab abnormalities, going to OR and other pertinent info. @ -Patient negative viral swab negative x-ray patient has a URI will continue [id number] treatment return parameters discussed. Undiagnosed new problem with uncertain prognosis? @ -No Drug Therapy requiring intensive monitoring for toxicity (Heparin, Nitro, Insulin, Cardizem)? @ -No Were any procedures done? @ -No Diagnosis/symptom? @ -URI Acute, or Chronic, or Acute on Chronic? @ -Acute Uncomplicated (without systemic symptoms) or Complicated (systemic symptoms)? @ -uncomplicated Side effects of treatment? @ -No Exacerbation, Progression, or Severe Exacerbation? @ -No Poses a threat to life or bodily function? How? (Chest pain, [place], [place], pneumonia, PE, COPD, DKA, ARF, appy, cholecystitis, CVA, Diverticulitis, Homicidal, Suicidal, threat to staff... and all critical care pts) @ -No - Lab Data Lab Results 08/01/24 Range/Units 12:15 Influenza Type A (PCR) Not Detected (Not Detectd) Influenza Type B (PCR) Not Detected (Not Detectd) RSV (PCR) Not Detected (Not Detectd) SARS-CoV-2 (PCR) Not Detected (Not Detectd) Disposition Clinical Impression: Acute upper respiratory infection Disposition: HOME SELF-CARE Condition: Stable Instructions (If sedation given, give patient instructions): Upper Respiratory Infection (ED) Additional Instructions: Please return to the Emergency Department if symptoms worsen or any other concerns. Prescriptions: Benzonatate [Tessalon Perle] 200 mg PO TID PRN #20 capsule PRN Reason: Cough Is patient prescribed a controlled substance at d/c from ED?: No Referrals: Genna Narayanan MD [Primary Care Provider] - 1-2 days Time of Disposition: 13:22
[2024-08-01 13:33] VITALS: BP 148/82; PULSE 71; RESP 16; TEMP 98.1
== END 2024-08-01 13:33 | disposition home or self-care (01) ==
LOC: EC 11:39
DX: J06.9 Acute upper respiratory infection, unspecified (principal); Z87.891 Personal history of nicotine dependence; Z88.0 Allergy status to penicillin; Z88.6 Allergy status to analgesic agent; Z88.8 Allergy status to other drugs, medicaments and biological substances
CPT/HCPCS: 71046; 87636; 99285